=== PATIENT | female | born 1955 | race American Indian/Alaskan Native ===

== ENCOUNTER 2021-10-14 17:10 | Emergency (ER) | payer MEDICARE ==
[2021-10-14 18:54] LABS: Basophils # (Auto) 0.1 K/mm3 (0.0-0.1); Basophils % (Auto) 1.2 % (0.0-1.8); Eosinophils # (Auto) 0.3 K/mm3 (0.0-0.4); Hematocrit 31.4 % (30.3-42.9); Hemoglobin 10.4 gm/dl (10.1-14.3); Lymphocytes # (Auto) 2.6 K/mm3 (1.2-5.4); Lymphocytes % (Auto) 42.7 % (13.4-35.0); Mean Corpuscular HGB Conc 33 % (30-34); Mean Corpuscular Volume 81 fl (79-97); Monocytes # (Auto) 0.6 K/mm3 (0.0-0.8); Platelet Count 293 K/mm3 (140-440); Red Blood Count 3.87 M/mm3 (3.65-5.03); Red Cell Distribution Width 17.4 % (13.2-15.2)
[2021-10-14 19:10] LABS: Calcium 9.5 mg/dL (8.4-10.2)
--- NOTE | 2021-10-14 19:15 | Emergency Department Report ---
ED Psych HPI - General Chief Complaint: Psych Stated Complaint: SI Time Seen by Provider: 10/14/21 17:50 Source: patient, EMS Mode of arrival: Stretcher Limitations: No Limitations - History of Present Illness Initial Comments: Patient is a 66-year-old female with history of depression presenting with complaint of increasing depression with thoughts of suicide. States she contemplated taking a handful of pills earlier today. She denies any specific triggering event. - Related Data Allergies Allergy/AdvReac Type Severity Reaction Status Date / Time codeine Allergy Hives Verified 10/14/21 18:12 Sulfa (Sulfonamide Allergy Anaphylaxis Verified 10/14/21 18:12 Antibiotics) ED Review of Systems ROS: Stated complaint: SI Other details as noted in HPI Constitutional: denies: chills, fever Respiratory: denies: cough, shortness of breath, wheezing Cardiovascular: as per HPI Gastrointestinal: denies: abdominal pain, nausea, diarrhea Genitourinary: denies: urgency, dysuria, discharge Musculoskeletal: denies: back pain, joint swelling, arthralgia Skin: denies: rash, lesions Neurological: denies: headache, weakness, paresthesias Psychiatric: depression, suicidal thoughts ED Past Medical Hx - Past Medical History Hx Hypertension: Yes Hx Diabetes: Yes (controlled with diet) Hx Arthritis: Yes Hx Psychiatric Treatment: Yes (depression, anxiety) Additional medical history: fibromyalgia, chronic pain, insomnia - Surgical History Past Surgical History?: Yes Hx Appendectomy: Yes Additional Surgical History: right shoulder, - Social History Smoking Status: Never Smoker Substance Use Type: Alcohol ED Physical Exam - General Limitations: No Limitations General appearance: alert, in no apparent distress - Head Head exam: Present: atraumatic, normocephalic - Neck Neck exam: Present: normal inspection - Respiratory Respiratory exam: Present: normal lung sounds bilaterally. Absent: respiratory distress - Cardiovascular Cardiovascular Exam: Present: regular rate, normal rhythm, normal heart sounds. Absent: systolic murmur, diastolic murmur, rubs, gallop - GI/Abdominal GI/Abdominal exam: Present: soft. Absent: distended, tenderness - Rectal Rectal exam: Present: deferred - Neurological Exam Neurological exam: Present: alert, oriented X3 - Psychiatric Psychiatric exam: Present: normal affect, depressed, suicidal ideation - Skin Skin exam: Present: warm, dry, intact, normal color ED Course Vital Signs 0510/14/21 10/14/21 17:31 18:13 19:40 Temperature 98.6 F 98 F Pulse Rate 72 72 Respiratory 18 16 Rate Blood Pressure 98/64 109/65 [Left] O2 Sat by Pulse 99 99 100 Oximetry 10/14/21 20:35 Temperature 98.5 F Pulse Rate 78 Respiratory 18 Rate Blood Pressure 116/78 [Left] O2 Sat by Pulse 100 Oximetry ED Medical Decision Making - Lab Data Result diagrams: 10/14/21 18:33 10/14/21 18:33 - Medical Decision Making Patient medically cleared. 1013 on file. Awaiting mental health assessment and placement. Critical care attestation.: If time is entered above; I have spent that time in minutes in the direct care of this critically ill patient, excluding procedure time. ED Disposition Clinical Impression: Depression with suicidal ideation Disposition: [address] [place] [address] Is pt being admited?: Yes Condition: Stable
[2021-10-14] MEDS ORDERED: ACETAMINOPHEN 325 MG TAB PO ONE (21:48)
[2021-10-14 23:32] LABS: Bilirubin,Urine NEG (Negative); Blood,Urine NEG (Negative); Color,Urine Yellow (Yellow); Mucus,Urine FEW /HPF; Protein,Urine <15 mg/dL mg/dL (Negative); Urobilinogen,Urine < 2.0 mg/dL (<2.0)
[2021-10-14 23:43] LABS: Amphetamine Screen,Urine PRESUMPTIVE NEGATIVE; Benzodiazepines Screen,Urine PRESUMPTIVE NEGATIVE; Cannabinoid Screen,Urine PRESUMPTIVE NEGATIVE; Cocaine Screen,Urine PRESUMPTIVE NEGATIVE; Methadone Screen,Urine PRESUMPTIVE NEGATIVE; Opiate Screen,Urine PRESUMPTIVE NEGATIVE
--- NOTE | 2021-10-15 11:13 | Consultation ---
History of Present Illness - Reason for Consult Consult date: 10/15/21 Reason for consult: SI, depression - History of Present Psychiatric Illness HPI: Patient is a 66-year-old female with history of depression presenting with complaint of increasing depression with thoughts of suicide. States she contemplated taking a handful of pills earlier today. She denies any specific triggering event. The patient was seen today. She says she is depressed and has been suffering from it for awhile. She says it seems to be getting worse and she doesn't know why. The patient also endorses suicidal thoughts with a plan to overdose. She denies HI. She denies any hallucinations. She says she has a history of depression and anxiety. The patient states she takes effexor and seroquel for sleep. She says she's been on effexor for so long and not sure if it's really working. She says she hasn't had any of his meds since Thursday. She denies any illicit drug use, chronic alcohol use or nicotine use. PAST PSYCHIATRIC HISTORY: Diagnoses: Depression, anxiety Suicide attempts or Self-harm behavior: Denies Prior psychiatric hospitalizations: Yes Substance Abuse history: Denies Previous psychiatric medications tried: Seroquel, effexor Outpatient treatment: Yes PAST MEDICAL HISTORY: None reported or document Family Psychiatric History: None reported or documented SOCIAL HISTORY Marital Status: Living Arrangements: With Sister Employment Status: Disabled Access to guns/weapons: Denies Education: high school grad History of Abuse: Denies Legal History: Denies REVIEW OF SYSTEMS Constitutional: Negative for weight loss ENT: Negative for stridor Respiratory: Negative for cough or hemoptysis All other systems reviewed and are negative MENTAL STATUS EXAMINATION General Appearance and Behavior: Age appropriate, wearing appropriate clothes, cooperative, polite with questioning, good eye contact Cooperation: cooperative Psychomotor Behavior: Psychomotor normal Mood: depressed Affect and affective range: Congruent with stated mood Thought Process: goal directed Thought Content: SI Speech: Normal volume, Regular rate and rhythm Suicidal Ideation: yes, with plan to OD Homicidal Ideation: Denies Hallucination: Denies Delusions: None elicited Impulse Control: Limited Insight and Judgment: Limited Memory: limited Attention:attentive Orientation: Alert and oriented Diagnoses: Major Depressive Disorder Treatment Plan 1013 Start Seroquel 50mg po BID Start Effexor 25mg po daily Start Vistaril 50mg po BID PSYCHOTHERAPY: Supportive psychotherapy provided MEDICAL: Per primary team DELIRIUM PRECAUTIONS: Please re-orient patient frequently, keep lights on during the day, and minimize benzodiazepines and opiates as these medications could worsen patient's confusion. REAL ESTATE PROFESSIONAL: Per medical team DISPOSITION: Recommend acute psychiatric inpatient treatment Will follow. Thank you for the consult. Case staffed with Dr. Joseph Medications and Allergies Allergies Allergy/AdvReac Type Severity Reaction Status Date / Time codeine Allergy Hives Verified 10/14/21 18:12 Sulfa (Sulfonamide Allergy Anaphylaxis Verified 10/14/21 18:12 Antibiotics) Mental Status Exam - Vital signs Last Vital Signs Temp 98.5 F 10/14/21 20:35 Pulse 78 10/14/21 20:35 Resp 18 10/14/21 20:35 BP 116/78 10/14/21 20:35 Pulse Ox 100 10/14/21 20:35 Results Result Diagrams: 10/14/21 18:33 10/14/21 18:33 Abnormal lab results 10/14/21 10/14/21 10/14/21 Range/Units 18:33 18:33 18:33 MCH 27 L (28-32) pg RDW 17.4 H (13.2-15.2) % Lymph % (Auto) 42.7 H (13.4-35.0) % [place] % (Auto) 10.0 H (0.0-7.3) % Eos % (Auto) 5.0 H (0.0-4.3) % Carbon Dioxide (22-30) mmol/L Creatinine (0.6-1.2) mg/dL Salicylates < 0.3 L (2.8-20.0) mg/dL Acetaminophen 5.0 L (10.0-30.0) ug/mL 10/14/21 Range/Units 18:33 MCH (28-32) pg RDW (13.2-15.2) % Lymph % (Auto) (13.4-35.0) % [place] % (Auto) (0.0-7.3) % Eos % (Auto) (0.0-4.3) % Carbon Dioxide 20 L (22-30) mmol/L Creatinine 1.6 H (0.6-1.2) mg/dL Salicylates (2.8-20.0) mg/dL Acetaminophen (10.0-30.0) ug/mL All other labs normal.
[2021-10-15] MEDS ORDERED: QUEtiapine 25 MG TAB PO SCH (12:00)
[2021-10-15] MEDS ORDERED: VENLAFAXINE 25 MG TAB PO SCH (12:00)
[2021-10-15 16:24] VITALS: BP 113/73
== END 2021-10-15 17:02 ==
LOC: ED 17:10
DX: F32.A Depression, unspecified (principal); R45.851 Suicidal ideations; I10 Essential (primary) hypertension; E11.9 Type 2 diabetes mellitus without complications; M19.90 Unspecified osteoarthritis, unspecified site; Z98.890 Other specified postprocedural states; Z88.1 Allergy status to other antibiotic agents; Z91.09 Other allergy status, other than to drugs and biological substances
CPT/HCPCS: 36415; 80053; 80307; 80320; 81001; 85025; 99284; G0480; Q0177; U0003

== ENCOUNTER 2021-10-15 12:33 | Inpatient (IN) | payer MEDICARE ==
--- NOTE | 2021-10-15 19:11 | Consultation ---
History of Present Illness - Reason for Consult Consult date: 10/15/21 Medical Management Requesting physician: NISHA BHAKTA - History of Present Illness 66 YO Female with Vascular Dementia with Behavioral Disturbance, Cerebral Atherosclerosis, HTN, Diet Controlled DM, FM, CPS, OA, MDD, JACQUELYN, Obesity. Pt is admitted to [place] psych unit for psychiatric stabilization. Consult placed by Dr. Bhakta for medical management. Patient seen and evaluated in the recreation room. Patient denies fever, chills, chest pain, palpitation, productive cough, skin rash, recent contact, known exposure to COVID-19. Patient resting. Patient exhibits tangential thinking with diminished cognition. No reported nursing events. Past History Past Medical History: arthritis, diabetes, hypertension Past Surgical History: appendectomy, Other (Shoulder surgery) Social history: single. denies: smoking Family history: diabetes, hypertension Medications and Allergies Allergies Allergy/AdvReac Type Severity Reaction Status Date / Time codeine Allergy Hives Verified 10/14/21 18:12 Sulfa (Sulfonamide Allergy Anaphylaxis Verified 10/14/21 18:12 Antibiotics) Home Medications Medication Instructions Recorded Confirmed Last Taken Type Albuterol Sulfate 2.25 mg IH [facility] 10/16/21 10/16/21 Unknown History Albuterol Sulfate [Proair 90 mcg IH [facility] 10/16/21 10/16/21 Unknown History Digihaler] Fluticasone Propion/Salmeterol 1 puff INHALATION BID 10/16/21 10/16/21 Unknown History [Wixela 250-50 Inhub] Pregabalin [Lyrica] 100 mg PO [facility] 10/16/21 10/16/21 Unknown History QUEtiapine [SEROquel] 200 mg PO BID 10/16/21 10/16/21 Unknown History Topiramate [Topamax] 50 mg PO K 10/16/21 10/16/21 Unknown History Venlafaxine HCl [Venlafaxine HCl 150 mg PO DAILY 10/16/21 10/16/21 Unknown History ER] amLODIPine [Norvasc] 5 mg PO DAILY 10/16/21 10/16/21 Unknown History buPROPion [Wellbutrin] 1 tab PO BID 10/16/21 10/16/21 Unknown History buPROPion [Wellbutrin] 1 tab PO BID 10/16/21 10/16/21 Unknown History hydrOXYzine HCL 1 tab PO BID 10/16/21 10/16/21 10/15/21 History Review of Systems Constitutional: no weight loss, no weight gain, no fever, no chills Ears, nose, mouth and throat: no ear pain, no tinnitis Breasts: no change in shape, no mass Cardiovascular: no chest pain, no orthopnea, no rapid/irregular heart beat, no edema, no lightheadedness Respiratory: no cough, no cough with sputum, no excessive sputum, no shortness of breath Gastrointestinal: no abdominal pain, no nausea, no vomiting, no diarrhea, no constipation, no hematemesis Genitourinary Female: no pelvic pain, no flank pain, no dysuria, no urinary frequency, no urgency Rectal: no pain, no incontinence, no bleeding Musculoskeletal: no neck stiffness, no neck pain, no low back pain, no shooting leg pain Integumentary: no rash, no pruritis, no redness, no sores, no wounds, no jaundice Neurological: no head injury, no paralysis, no parathesias, no tingling, no seizures, no syncope Psychiatric: no anxiety, no memory loss, no sleep disturbances, no insomnia, no change in appetite, no disorientation Endocrine: no cold intolerance, no excessive thirst, no polydipsia, no nocturia, no excessive sweating Hematologic/Lymphatic: no easy bruising, no easy bleeding, no lymphedema Allergic/Immunologic: no urticaria, no allergic rhinitis, no angioedema Exam - Constitutional General appearance: Present: no acute distress, obese - EENT Eyes: Present: PERRL ENT: hearing intact, clear oral mucosa - Neck Neck: Present: supple, normal ROM - Respiratory Respiratory effort: normal Respiratory: bilateral: diminished - Cardiovascular Heart Sounds: Present: S1 & S2. Absent: rub, click - Extremities Extremities: pulses symmetrical, No edema Peripheral Pulses: within normal limits - Abdominal General gastrointestinal: Present: soft, non-tender, non-distended, normal bowel sounds Female genitourinary: Present: normal - Integumentary Integumentary: Present: clear, warm, dry - Musculoskeletal Musculoskeletal: gait normal, strength equal bilaterally - Psychiatric Psychiatric: cooperative - Neurologic Neurologic: CNII-XII intact, moves all extremities Results - Labs CBC & Chem 7: 10/16/21 09:07 10/16/21 09:07 Assessment and Plan - Patient Problems (1) Vascular dementia with behavior disturbance Current Visit: Yes Status: Acute Plan to address problem: Verbal prompting, verbal redirection, benzodiazepine therapy as clinically indicated, (2) Cerebral atherosclerosis Current Visit: Yes Status: Acute Plan to address problem: Risk factor reduction, antiplatelet therapy as clinically indicated, supportive care. (3) HTN (hypertension) Current Visit: Yes Status: Acute Qualifiers: Hypertension type: primary hypertension Qualified Code(s): I10 - Essential (primary) hypertension Plan to address problem: Monitor blood pressure every shift, continue medical management. (4) Diabetes Current Visit: Yes Status: Acute Plan to address problem: Consistent carbohydrate diet, Accu-Chek, insulin protocol, hypoglycemia protocol. (5) MDD (major depressive disorder) Current Visit: Yes Status: Acute Qualifiers: Major depression episode severity: unspecified Plan to address problem: Supportive care, continue medical management. (6) JACQUELYN (generalized anxiety disorder) Current Visit: Yes Status: Acute Plan to address problem: Benzodiazepine therapy as clinically indicated. Verbal redirection, supportive care. (7) Fibromyalgia Current Visit: Yes Status: Acute Plan to address problem: Continue current therapy, outpatient rheumatology follow-up. (8) Osteoarthritis Current Visit: Yes Status: Acute Plan to address problem: NSAID therapy, supportive care. Pain control. (9) Obesity (BMI 30.0-34.9) Current Visit: Yes Status: Acute Plan to address problem: Balanced diet, increase physical activity discharge, outpatient pulmonary follow-up for sleep study. (10) Advance care planning Current Visit: Yes Status: Acute Plan to address problem: Disease education conducted, care plan discussed, diagnoses discussed, prognosis discussed, patient is full code. Patient knowledges understanding and agreement with care plan, +30 minutes. (11) Preventative health care Current Visit: Yes Status: Acute Plan to address problem: Patient counseled regarding balanced diet, risk factor reduction, medication compliance, increase physical activity at discharge, weight reduction, patient instructed to follow-up with primary care physician for all age and risk factor appropriate screening tests.
[2021-10-15] MEDS: traZODone 50 MG TAB PO SCH (23:31)
[2021-10-15] MEDS: ACETAMINOPHEN 325 MG TAB PO PRN (23:31)
[2021-10-16 09:45] LABS: Basophils # (Auto) 0.1 K/mm3 (0.0-0.1); Basophils % (Auto) 1.3 % (0.0-1.8); Eosinophils # (Auto) 0.3 K/mm3 (0.0-0.4); Eosinophils % (Auto) 5.3 % (0.0-4.3); Hematocrit 32.5 % (30.3-42.9); Hemoglobin 10.9 gm/dl (10.1-14.3); Lymphocytes # (Auto) 2.6 K/mm3 (1.2-5.4); Lymphocytes % (Auto) 45.2 % (13.4-35.0); Mean Corpuscular HGB Conc 34 % (30-34); Mean Corpuscular Volume 81 fl (79-97); Monocytes # (Auto) 0.5 K/mm3 (0.0-0.8); Monocytes % (Auto) 9.3 % (0.0-7.3); Platelet Count 297 K/mm3 (140-440); Red Blood Count 4.02 M/mm3 (3.65-5.03); Red Cell Distribution Width 17.5 % (13.2-15.2)
[2021-10-16 10:09] LABS: Albumin 4.1 g/dL (3.9-5); Calcium 9.4 mg/dL (8.4-10.2); Chol/HDL Ratio 2.85 %
[2021-10-16] MEDS ORDERED: NON-FORMULARY EACH (Pregabalin [Lyrica] 100 MG Capsule) PO SCH (10:45)
[2021-10-16] MEDS ORDERED: ALBUTEROL SULFATE 1.25 MG/3 ML IH SCH (10:45)
[2021-10-16] MEDS ORDERED: NON-FORMULARY EACH (Topiramate [Topamax] 50 MG Tablet) PO SCH (10:45)
[2021-10-16] MEDS ORDERED: NON-FORMULARY EACH (Albuterol Sulfate [Proair Digihaler] 90 MCG Aer.Pw.Bas) IH SCH (10:45)
--- NOTE | 2021-10-16 10:45 | History and Physical Report ---
GP History & Physical - History of Present Illness Date of admission: 10/15/21 Date of Examination: 10/16/21 Reason for Admission: Danger to self, Failure of Outpatient Treatment, Severe anxiety/depression History of Present Illness: HPI: Patient is a 66-year-old female with history of depression presenting with complaint of increasing depression with thoughts of suicide. States she contemplated taking a handful of pills earlier today. She denies any specific triggering event. The patient was seen today. She was first evaluated by me in the ER. The patient expresses being severely depressed. She says she's been depressed for years but it has gotten progressively worse over the last few days. The patient could not identify any triggering events. She also endorses SI with a plan to overdose. She denies hallucinations of any kind. PAST PSYCHIATRIC HISTORY: Diagnoses: Depression, anxiety Suicide attempts or Self-harm behavior: Denies Prior psychiatric hospitalizations: Yes Substance Abuse history: Denies Previous psychiatric medications tried: Seroquel, effexor Outpatient treatment: Yes PAST MEDICAL HISTORY: None reported or document Family Psychiatric History: None reported or documented SOCIAL HISTORY Marital Status: Living Arrangements: With Sister Employment Status: Disabled Access to guns/weapons: Denies Education: high school grad History of Abuse: Denies Legal History: Denies REVIEW OF SYSTEMS Constitutional: Negative for weight loss ENT: Negative for stridor Respiratory: Negative for cough or hemoptysis All other systems reviewed and are negative MENTAL STATUS EXAMINATION General Appearance and Behavior: Age appropriate, wearing appropriate clothes, cooperative, polite with questioning, good eye contact Cooperation: cooperative Psychomotor Behavior: Psychomotor normal Mood: depressed Affect and affective range: Congruent with stated mood Thought Process: goal directed Thought Content: SI Speech: Normal volume, Regular rate and rhythm Suicidal Ideation: yes, with plan to OD Homicidal Ideation: Denies Hallucination: Denies Delusions: None elicited Impulse Control: Limited Insight and Judgment: Limited Memory: limited Attention:attentive Orientation: Alert and oriented Diagnoses: Major Depressive Disorder Treatment Plan Patient admitted for inpatient psychiatric evaluation, medication adjustment and close monitoring The patient's behavior, mood, sleep and appetite will be closely monitored. Patient enrolled in individual and group therapeutic sessions and encouraged to attend. Patient provided with a safe and structured environment. Patient's physical health needs will be addressed by the Hospitalist. Hospitalist Consulted Labs including CBC, CMP, Lipid profile and Hemoglobin A1C levels ordered for baseline reference Social Assessment will be completed and the [place] will work with patient and family to ensure a suitable and safe disposition Medication adjustment will be made as clinically indicated Continued meds Usual Wellness [employer]/Preservation: - Start Trazodone 50 mg po QHS & 50 mg po QHS PRN between 10 PM & 2 AM for insomnia - Start Melatonin 5 mg po QHS to promote circadian rhythm The patient agreed on the treatment plan, understood the risk, benefit, alternative treatment, potential consequence of no treatment, and gave informed consent. Estimated days: 7 Post hospital care: primary care provider, psychiatric provider Case staffed with Dr. Joseph Legal Status: Voluntary Patient Problems: Current Active Problems Advance care planning (Acute) Cerebral atherosclerosis (Acute) Diabetes (Acute) Fibromyalgia (Acute) JACQUELYN (generalized anxiety disorder) (Acute) HTN (hypertension) (Acute) MDD (major depressive disorder) (Acute) Osteoarthritis (Acute) Preventative health care (Acute) Vascular dementia with behavior disturbance (Acute) Reaction to Hospitalization: Accepting Medications and Allergies Allergies Allergy/AdvReac Type Severity Reaction Status Date / Time codeine Allergy Hives Verified 10/14/21 18:12 Sulfa (Sulfonamide Allergy Anaphylaxis Verified 10/14/21 18:12 Antibiotics) Home Medications Medication Instructions Recorded Confirmed Last Taken Type Albuterol Sulfate 2.25 mg IH [facility] 10/16/21 10/16/21 Unknown History Albuterol Sulfate [Proair 90 mcg IH [facility] 10/16/21 10/16/21 Unknown History Digihaler] Fluticasone Propion/Salmeterol 1 puff INHALATION BID 10/16/21 10/16/21 Unknown History [Wixela 250-50 Inhub] Pregabalin [Lyrica] 100 mg PO [facility] 10/16/21 10/16/21 Unknown History QUEtiapine [SEROquel] 200 mg PO BID 10/16/21 10/16/21 Unknown History Topiramate [Topamax] 50 mg PO [facility] 10/16/21 10/16/21 Unknown History Venlafaxine HCl [Venlafaxine HCl 150 mg PO DAILY 10/16/21 10/16/21 Unknown History ER] amLODIPine [Norvasc] 5 mg PO DAILY 10/16/21 10/16/21 Unknown History buPROPion [Wellbutrin] 1 tab PO BID 10/16/21 10/16/21 Unknown History buPROPion [Wellbutrin] 1 tab PO BID 10/16/21 10/16/21 Unknown History hydrOXYzine HCL 1 tab PO BID 10/16/21 10/16/21 10/15/21 History Active Meds: Active Medications Acetaminophen (Acetaminophen 325 Mg Tab) 650 mg PO Q6H PRN PRN Reason: Pain, Mild (1-3) Last Admin: 10/15/21 23:31 Dose: 650 mg Trazodone HCl (Trazodone 50 Mg Tab) 50 mg PO QHS JOSE Last Admin: 10/15/21 23:31 Dose: 50 mg Results - Results Labs/Vitals: Laboratory Last Values WBC 5.7 K/mm3 (4.5-11.0) 10/16/21 09:07 RBC 4.02 M/mm3 (3.65-5.03) 10/16/21 09:07 Hgb 10.9 gm/dl (10.1-14.3) 10/16/21 09:07 Hct 32.5 % (30.3-42.9) 10/16/21 09:07 MCV 81 fl (79-97) 10/16/21 09:07 MCH 27 pg (28-32) L 10/16/21 09:07 MCHC 34 % (30-34) 10/16/21 09:07 RDW 17.5 % (13.2-15.2) H 10/16/21 09:07 Plt Count 297 K/mm3 (140-440) 10/16/21 09:07 Lymph % (Auto) 45.2 % (13.4-35.0) H 10/16/21 09:07 [place] % (Auto) 9.3 % (0.0-7.3) H 10/16/21 09:07 Eos % (Auto) 5.3 % (0.0-4.3) H 10/16/21 09:07 Baso % (Auto) 1.3 % (0.0-1.8) 10/16/21 09:07 Lymph # (Auto) 2.6 K/mm3 (1.2-5.4) 10/16/21 09:07 [place] # (Auto) 0.5 K/mm3 (0.0-0.8) 10/16/21 09:07 Eos # (Auto) 0.3 K/mm3 (0.0-0.4) 10/16/21 09:07 Baso # (Auto) 0.1 K/mm3 (0.0-0.1) 10/16/21 09:07 Seg Neutrophils % 38.9 % (40.0-70.0) L 10/16/21 09:07 Seg Neutrophils # 2.2 K/mm3 (1.8-7.7) 10/16/21 09:07 Sodium 141 mmol/L (137-145) 10/16/21 09:07 Potassium 3.9 mmol/L (3.6-5.0) 10/16/21 09:07 Chloride 106.6 mmol/L (98-107) 10/16/21 09:07 Carbon Dioxide 24 mmol/L (22-30) 10/16/21 09:07 Anion Gap 14 mmol/L 10/16/21 09:07 BUN 18 mg/dL (7-17) H 10/16/21 09:07 Creatinine 1.4 mg/dL (0.6-1.2) H 10/16/21 09:07 Estimated GFR 46 ml/min 10/16/21 09:07 BUN/Creatinine Ratio 13 % 10/16/21 09:07 Glucose 80 mg/dL (65-100) 10/16/21 09:07 Hemoglobin A1c 5.6 % (4-6) 10/16/21 09:07 Calcium 9.4 mg/dL (8.4-10.2) 10/16/21 09:07 Total Bilirubin 0.30 mg/dL (0.1-1.2) 10/16/21 09:07 AST 19 units/L (5-40) 10/16/21 09:07 ALT 17 units/L (7-56) 10/16/21 09:07 Alkaline Phosphatase 103 units/L (35-129) 10/16/21 09:07 Total Protein 6.7 g/dL (6.3-8.2) 10/16/21 09:07 Albumin 4.1 g/dL (3.9-5) 10/16/21 09:07 Albumin/Globulin Ratio 1.6 % 10/16/21 09:07 Triglycerides 64 mg/dL (2-149) 10/16/21 09:07 Cholesterol 171 mg/dL (50-199) 10/16/21 09:07 LDL Cholesterol Direct 91 mg/dL (50-130) 10/16/21 09:07 HDL Cholesterol 60 mg/dL (40-59) H 10/16/21 09:07 Cholesterol/HDL Ratio 2.85 % 10/16/21 09:07 TSH 1.530 mlU/mL (0.270-4.200) 10/16/21 09:07 Last Vital Signs Temp 98.1 F 10/15/21 22:00 Pulse 82 10/15/21 22:00 Resp 18 10/15/21 22:00 BP 106/77 10/15/21 22:00 Pulse Ox 100 10/15/21 22:00 Physical Examination - Constitutional Vitals: Vital Signs Temp Pulse Resp BP Pulse Ox 98.1 F 82 18 106/77 100 10/15/21 22:00 10/15/21 22:00 10/15/21 22:00 10/15/21 22:00 10/15/21 22:00 Temperature -Last 24 Hours Temperature 98.1 F Temperature 98.1 F Temperature 98.8 F Mental Status Exam - Vital signs Last Vital Signs Temp 98.1 F 10/15/21 22:00 Pulse 82 10/15/21 22:00 Resp 18 10/15/21 22:00 BP 106/77 10/15/21 22:00 Pulse Ox 100 10/15/21 22:00 Physician Certification - Certification Statement Physician Certification Statement: This is an acknowledgement statement that RUFINO RAMON is a 66 year old F who requires inpatient psychiatric admission for treatment which could reasonably be expected to improve the patient's condition for Estimated period of time patient will need to remain in the hospital: [ ] Plan for post-hospital care: [ ]
[2021-10-16] MEDS ORDERED: VENLAFAXINE HCL 150 MG PO SCH (11:00)
[2021-10-16] MEDS ORDERED: ALBUTEROL 2.5 MG/3 ML NEBU IH PRN (12:03)
[2021-10-16] MEDS: ACETAMINOPHEN 325 MG TAB PO PRN (13:26)
[2021-10-16] MEDS: amLODIPine 5 MG TAB PO SCH (13:28)
[2021-10-16] MEDS: buPROPion 100 MG TAB PO SCH ×2 (13:30→21:15)
[2021-10-16] MEDS: QUEtiapine 200 MG TAB PO SCH ×2 (13:30→21:15)
[2021-10-16] MEDS: VENLAFAXINE XR 75 MG CAP PO SCH (13:37)
[2021-10-16] MEDS: traZODone 50 MG TAB PO SCH (21:15)
[2021-10-16] MEDS ORDERED: HYDROXYZINE HCL 50 MG PO SCH (22:00)
[2021-10-16] MEDS ORDERED: NON-FORMULARY EACH (Fluticasone Propion/Salmeterol [Wixela 250-50 Inhub] 1 EACH Blst.W.Dev INHALATION SCH (22:00)
[2021-10-16] MEDS: BUDESONIDE 0.5 MG/2 ML NEBU IH SCH (22:22)
[2021-10-16] MEDS: ARFORMOTEROL 15 MCG/2 ML NEBU IH SCH (22:22)
[2021-10-16] MEDS: hydrOXYzine HCL 25 MG TAB PO SCH (22:32)
--- NOTE | 2021-10-17 08:47 | Progress Note ---
Subjective Date of service: 10/17/21 Principal diagnosis: Major Depressive Disorder Subjective Comment: The patient was seen today. She verbalizes still feeling depressed. She endorses SI with no plan at this time. She says "only cause I'm here. That's why I don't have a plan." She denies hallucinations. REVIEW OF SYSTEMS Constitutional: Negative for weight loss ENT: Negative for stridor Respiratory: Negative for cough or hemoptysis All other systems reviewed and are negative MENTAL STATUS EXAMINATION General Appearance and Behavior: Age appropriate, wearing appropriate clothes, cooperative, polite with questioning, good eye contact Cooperation: cooperative Psychomotor Behavior: Psychomotor normal Mood: depressed Affect and affective range: Congruent with stated mood Thought Process: goal directed Thought Content: SI Speech: Normal volume, Regular rate and rhythm Suicidal Ideation: yes, with plan to OD Homicidal Ideation: Denies Hallucination: Denies Delusions: None elicited Impulse Control: Limited Insight and Judgment: Limited Memory: limited Attention:attentive Orientation: Alert and oriented Diagnoses: Major Depressive Disorder Treatment Plan Patient admitted for inpatient psychiatric evaluation, medication adjustment and close monitoring The patient's behavior, mood, sleep and appetite will be closely monitored. Patient enrolled in individual and group therapeutic sessions and encouraged to attend. Patient provided with a safe and structured environment. Patient's physical health needs will be addressed by the Hospitalist. Hospitalist Consulted Labs including CBC, CMP, Lipid profile and Hemoglobin A1C levels ordered for baseline reference Social Assessment will be completed and the Technical Solutions Director will work with patient and family to ensure a suitable and safe disposition Medication adjustment will be made as clinically indicated Increased Seroquel yesterday No changes made today Usual Wellness [place]/Preservation: - Start Trazodone 50 mg po QHS & 50 mg po QHS PRN between 10 PM & 2 AM for insomnia - Start Melatonin 5 mg po QHS to promote circadian rhythm The patient agreed on the treatment plan, understood the risk, benefit, alternative treatment, potential consequence of no treatment, and gave informed consent. Estimated days: 7 Post hospital care: primary care provider, psychiatric provider Case staffed with Dr. Joseph Medications and Allergies Allergies Allergy/AdvReac Type Severity Reaction Status Date / Time codeine Allergy Hives Verified 10/14/21 18:12 Sulfa (Sulfonamide Allergy Anaphylaxis Verified 10/14/21 18:12 Antibiotics) Home Medications Medication Instructions Recorded Confirmed Last Taken Type Albuterol Sulfate 2.25 mg IH UNK 10/16/21 10/16/21 Unknown History Albuterol Sulfate [Proair 90 mcg IH UNK 10/16/21 10/16/21 Unknown History Digihaler] Fluticasone Propion/Salmeterol 1 puff INHALATION BID 10/16/21 10/16/21 Unknown History [Wixela 250-50 Inhub] Pregabalin [Lyrica] 100 mg PO UNK 10/16/21 10/16/21 Unknown History QUEtiapine [SEROquel] 200 mg PO BID 10/16/21 10/16/21 Unknown History Topiramate [Topamax] 50 mg PO UNK 10/16/21 10/16/21 Unknown History Venlafaxine HCl [Venlafaxine HCl 150 mg PO DAILY 10/16/21 10/16/21 Unknown History ER] amLODIPine [Norvasc] 5 mg PO DAILY 10/16/21 10/16/21 Unknown History buPROPion [Wellbutrin] 1 tab PO BID 10/16/21 10/16/21 Unknown History buPROPion [Wellbutrin] 1 tab PO BID 10/16/21 10/16/21 Unknown History hydrOXYzine HCL 1 tab PO BID 10/16/21 10/16/21 10/15/21 History Active Meds: Active Medications Acetaminophen (Acetaminophen 325 Mg Tab) 650 mg PO Q6H PRN PRN Reason: Pain, Mild (1-3) Last Admin: 10/16/21 13:26 Dose: 650 mg Albuterol (Albuterol 2.5 Mg/3 Ml Nebu) 2.5 mg IH Q4HRT PRN PRN Reason: Shortness Of Breath Amlodipine Besylate (Amlodipine 5 Mg Tab) 5 mg PO DAILY [facility] Last Admin: 10/16/21 13:28 Dose: 5 mg Arformoterol Tartrate (Arformoterol 15 Mcg/2 Ml Nebu) 15 mcg IH Q12HRT [facility] Last Admin: 10/16/21 22:22 Dose: Not Given Budesonide (Budesonide 0.5 Mg/2 Ml Nebu) 0.5 mg IH Q12HRT [facility] Last Admin: 10/16/21 22:22 Dose: Not Given Bupropion HCl (Bupropion 100 Mg Tab) 100 mg PO BID [facility] Last Admin: 10/16/21 21:15 Dose: 100 mg Hydroxyzine HCl (Hydroxyzine Hcl 25 Mg Tab) 50 mg PO BID [facility] Last Admin: 10/16/21 22:32 Dose: 50 mg Miscellaneous Medication (Pregabalin [Lyrica]) 100 mg PO UNK [facility] Miscellaneous Medication (Topiramate [Topamax]) 50 mg PO UNK [facility] Quetiapine Fumarate (Quetiapine 200 Mg Tab) 200 mg PO BID [facility] Last Admin: 10/16/21 21:15 Dose: 200 mg Trazodone HCl (Trazodone 50 Mg Tab) 50 mg PO QHS [facility] Last Admin: 10/16/21 21:15 Dose: 50 mg Venlafaxine HCl (Venlafaxine Xr 75 Mg Cap) 150 mg PO QDAY [facility] Last Admin: 10/16/21 13:37 Dose: 150 mg Results - Results Labs/Vitals: Laboratory Last Values WBC 5.7 K/mm3 (4.5-11.0) 10/16/21 09:07 RBC 4.02 M/mm3 (3.65-5.03) 10/16/21 09:07 Hgb 10.9 gm/dl (10.1-14.3) 10/16/21 09:07 Hct 32.5 % (30.3-42.9) 10/16/21 09:07 MCV 81 fl (79-97) 10/16/21 09:07 MCH 27 pg (28-32) L 10/16/21 09:07 MCHC 34 % (30-34) 10/16/21 09:07 RDW 17.5 % (13.2-15.2) H 10/16/21 09:07 Plt Count 297 K/mm3 (140-440) 10/16/21 09:07 Lymph % (Auto) 45.2 % (13.4-35.0) H 10/16/21 09:07 [place] % (Auto) 9.3 % (0.0-7.3) H 10/16/21 09:07 Eos % (Auto) 5.3 % (0.0-4.3) H 10/16/21 09:07 Baso % (Auto) 1.3 % (0.0-1.8) 10/16/21 09:07 Lymph # (Auto) 2.6 K/mm3 (1.2-5.4) 10/16/21 09:07 [place] # (Auto) 0.5 K/mm3 (0.0-0.8) 10/16/21 09:07 Eos # (Auto) 0.3 K/mm3 (0.0-0.4) 10/16/21 09:07 Baso # (Auto) 0.1 K/mm3 (0.0-0.1) 10/16/21 09:07 Seg Neutrophils % 38.9 % (40.0-70.0) L 10/16/21 09:07 Seg Neutrophils # 2.2 K/mm3 (1.8-7.7) 10/16/21 09:07 Sodium 141 mmol/L (137-145) 10/16/21 09:07 Potassium 3.9 mmol/L (3.6-5.0) 10/16/21 09:07 Chloride 106.6 mmol/L (98-107) 10/16/21 09:07 Carbon Dioxide 24 mmol/L (22-30) 10/16/21 09:07 Anion Gap 14 mmol/L 10/16/21 09:07 BUN 18 mg/dL (7-17) H 10/16/21 09:07 Creatinine 1.4 mg/dL (0.6-1.2) H 10/16/21 09:07 Estimated GFR 46 ml/min 10/16/21 09:07 BUN/Creatinine Ratio 13 % 10/16/21 09:07 Glucose 80 mg/dL (65-100) 10/16/21 09:07 POC Glucose 102 mg/dL (70-105) 10/16/21 17:05 Hemoglobin A1c 5.6 % (4-6) 10/16/21 09:07 Calcium 9.4 mg/dL (8.4-10.2) 10/16/21 09:07 Total Bilirubin 0.30 mg/dL (0.1-1.2) 10/16/21 09:07 AST 19 units/L (5-40) 10/16/21 09:07 ALT 17 units/L (7-56) 10/16/21 09:07 Alkaline Phosphatase 103 units/L (35-129) 10/16/21 09:07 Total Protein 6.7 g/dL (6.3-8.2) 10/16/21 09:07 Albumin 4.1 g/dL (3.9-5) 10/16/21 09:07 Albumin/Globulin Ratio 1.6 % 10/16/21 09:07 Triglycerides 64 mg/dL (2-149) 10/16/21 09:07 Cholesterol 171 mg/dL (50-199) 10/16/21 09:07 LDL Cholesterol Direct 91 mg/dL (50-130) 10/16/21 09:07 HDL Cholesterol 60 mg/dL (40-59) H 10/16/21 09:07 Cholesterol/HDL Ratio 2.85 % 10/16/21 09:07 TSH 1.530 mlU/mL (0.270-4.200) 10/16/21 09:07 Last Vital Signs Temp 97.5 F L 10/16/21 22:00 Pulse 97 H 10/16/21 22:00 Resp 18 10/16/21 22:00 BP 129/81 10/16/21 22:00 Pulse Ox 99 10/16/21 22:00
[2021-10-17] MEDS: BUDESONIDE 0.5 MG/2 ML NEBU IH SCH ×2 (09:24→20:22)
[2021-10-17] MEDS: ARFORMOTEROL 15 MCG/2 ML NEBU IH SCH ×2 (09:25→20:21)
[2021-10-17] MEDS: QUEtiapine 200 MG TAB PO SCH ×2 (09:34→21:18)
[2021-10-17] MEDS: amLODIPine 5 MG TAB PO SCH (09:34)
[2021-10-17] MEDS: buPROPion 100 MG TAB PO SCH ×2 (09:34→21:17)
[2021-10-17] MEDS: VENLAFAXINE XR 75 MG CAP PO SCH (09:34)
[2021-10-17] MEDS: hydrOXYzine HCL 25 MG TAB PO SCH ×2 (09:36→21:17)
[2021-10-17] MEDS ORDERED: LIP THERAPY VASELINE TP PRN (15:36)
--- NOTE | 2021-10-17 19:09 | Progress Note ---
Assessment and Plan - Patient Problems (1) Vascular dementia with behavior disturbance Current Visit: Yes Status: Acute Plan to address problem: Verbal prompting, verbal redirection, benzodiazepine therapy as clinically indicated, (2) Cerebral atherosclerosis Current Visit: Yes Status: Acute Plan to address problem: Risk factor reduction, antiplatelet therapy as clinically indicated, supportive care. (3) HTN (hypertension) Current Visit: Yes Status: Acute Qualifiers: Hypertension type: primary hypertension Qualified Code(s): I10 - Essential (primary) hypertension Plan to address problem: Monitor blood pressure every shift, continue medical management. (4) Diabetes Current Visit: Yes Status: Acute Plan to address problem: Consistent carbohydrate diet, Accu-Chek, insulin protocol, hypoglycemia pr otocol. (5) MDD (major depressive disorder) Current Visit: Yes Status: Acute Qualifiers: Major depression episode severity: unspecified Plan to address problem: Supportive care, continue medical management. (6) JACQUELYN (generalized anxiety disorder) Current Visit: Yes Status: Acute Plan to address problem: Benzodiazepine therapy as clinically indicated. Verbal redirection, supportive care. (7) Fibromyalgia Current Visit: Yes Status: Acute Plan to address problem: Continue current therapy, outpatient rheumatology follow-up. (8) Osteoarthritis Current Visit: Yes Status: Acute Plan to address problem: NSAID therapy, supportive care. Pain control. (9) Obesity (BMI 30.0-34.9) Current Visit: Yes Status: Acute Plan to address problem: Balanced diet, increase physical activity discharge, outpatient pulmonary follow-up for sleep study. (10) Advance care planning Current Visit: Yes Status: Acute Plan to address problem: Disease education conducted, care plan discussed, diagnoses discussed, prognosis discussed, patient is full code. Patient knowledges understanding and agreement with care plan, +30 minutes. (11) Preventative health care Current Visit: Yes Status: Acute Plan to address problem: Patient counseled regarding balanced diet, risk factor reduction, medication compliance, increase physical activity at discharge, weight reduction, patient instructed to follow-up with primary care physician for all age and risk factor appropriate screening tests. History Interval history: 66 YO Female with Vascular Dementia with Behavioral Disturbance, Cerebral Atherosclerosis, HTN, Diet Controlled DM, FM, CPS, OA, MDD, JACQUELYN, Obesity. Pt is admitted to [place] psych unit for psychiatric stabilization. Consult placed by Dr. Kolb for medical management. Patient seen and evaluated in the recreation room. Patient remains at baseline level of cognition and function. No reported nursing events. Hospitalist Physical - Constitutional Vitals: Temp Pulse Resp BP Pulse Ox 97.5 F L 94 H 16 132/86 99 10/16/21 22:00 10/17/21 09:34 10/17/21 08:54 10/17/21 09:34 10/17/21 08:54 General appearance: Present: no acute distress, obese - EENT Eyes: Present: PERRL ENT: hearing intact - Neck Neck: Present: supple - Respiratory Respiratory effort: normal Respiratory: bilateral: CTA - Cardiovascular Rhythm: regular Heart Sounds: Present: S1 & S2 - Extremities Extremities: no ischemia Peripheral Pulses: within normal limits - Abdominal General gastrointestinal: soft, non-tender, non-distended - Integumentary Integumentary: Present: clear, dry - Psychiatric Psychiatric: cooperative - Neurologic Neurologic: CNII-XII intact Results - Labs CBC & Chem 7: 10/16/21 09:07 10/16/21 09:07 Labs: Laboratory Last Values WBC 5.7 K/mm3 (4.5-11.0) 10/16/21 09:07 RBC 4.02 M/mm3 (3.65-5.03) 10/16/21 09:07 Hgb 10.9 gm/dl (10.1-14.3) 10/16/21 09:07 Hct 32.5 % (30.3-42.9) 10/16/21 09:07 MCV 81 fl (79-97) 10/16/21 09:07 MCH 27 pg (28-32) L 10/16/21 09:07 MCHC 34 % (30-34) 10/16/21 09:07 RDW 17.5 % (13.2-15.2) H 10/16/21 09:07 Plt Count 297 K/mm3 (140-440) 10/16/21 09:07 Lymph % (Auto) 45.2 % (13.4-35.0) H 10/16/21 09:07 [place] % (Auto) 9.3 % (0.0-7.3) H 10/16/21 09:07 Eos % (Auto) 5.3 % (0.0-4.3) H 10/16/21 09:07 Baso % (Auto) 1.3 % (0.0-1.8) 10/16/21 09:07 Lymph # (Auto) 2.6 K/mm3 (1.2-5.4) 10/16/21 09:07 [place] # (Auto) 0.5 K/mm3 (0.0-0.8) 10/16/21 09:07 Eos # (Auto) 0.3 K/mm3 (0.0-0.4) 10/16/21 09:07 Baso # (Auto) 0.1 K/mm3 (0.0-0.1) 10/16/21 09:07 Seg Neutrophils % 38.9 % (40.0-70.0) L 10/16/21 09:07 Seg Neutrophils # 2.2 K/mm3 (1.8-7.7) 10/16/21 09:07 Sodium 141 mmol/L (137-145) 10/16/21 09:07 Potassium 3.9 mmol/L (3.6-5.0) 10/16/21 09:07 Chloride 106.6 mmol/L (98-107) 10/16/21 09:07 Carbon Dioxide 24 mmol/L (22-30) 10/16/21 09:07 Anion Gap 14 mmol/L 10/16/21 09:07 BUN 18 mg/dL (7-17) H 10/16/21 09:07 Creatinine 1.4 mg/dL (0.6-1.2) H 10/16/21 09:07 Estimated GFR 46 ml/min 10/16/21 09:07 BUN/Creatinine Ratio 13 % 10/16/21 09:07 Glucose 80 mg/dL (65-100) 10/16/21 09:07 POC Glucose 102 mg/dL (70-105) 10/16/21 17:05 Hemoglobin A1c 5.6 % (4-6) 10/16/21 09:07 Calcium 9.4 mg/dL (8.4-10.2) 10/16/21 09:07 Total Bilirubin 0.30 mg/dL (0.1-1.2) 10/16/21 09:07 AST 19 units/L (5-40) 10/16/21 09:07 ALT 17 units/L (7-56) 10/16/21 09:07 Alkaline Phosphatase 103 units/L (35-129) 10/16/21 09:07 Total Protein 6.7 g/dL (6.3-8.2) 10/16/21 09:07 Albumin 4.1 g/dL (3.9-5) 10/16/21 09:07 Albumin/Globulin Ratio 1.6 % 10/16/21 09:07 Triglycerides 64 mg/dL (2-149) 10/16/21 09:07 Cholesterol 171 mg/dL (50-199) 10/16/21 09:07 LDL Cholesterol Direct 91 mg/dL (50-130) 10/16/21 09:07 HDL Cholesterol 60 mg/dL (40-59) H 10/16/21 09:07 Cholesterol/HDL Ratio 2.85 % 10/16/21 09:07 TSH 1.530 mlU/mL (0.270-4.200) 10/16/21 09:07 [place]/IV: Voiding Method Toilet Active Medications - Current Medications Current Medications: Generic Name Dose Route Start Last Admin Trade Name Freq PRN Reason Stop Dose Admin Acetaminophen 650 mg 10/15/21 23:20 10/16/21 13:26 Acetaminophen 325 Mg Tab PO 650 mg Q6H PRN Administration Pain, Mild (1-3) Albuterol 2.5 mg 10/16/21 12:03 Albuterol 2.5 Mg/3 Ml Nebu IH Q4HRT PRN Shortness Of Breath Amlodipine Besylate 5 mg 10/16/21 11:00 10/17/21 09:34 Amlodipine 5 Mg Tab PO 5 mg DAILY JOSE Administration Arformoterol Tartrate 15 mcg 10/16/21 20:00 10/17/21 09:25 Arformoterol 15 Mcg/2 Ml Nebu IH 15 mcg Q12HRT JOSE Administration Budesonide 0.5 mg 10/16/21 20:00 10/17/21 09:24 Budesonide 0.5 Mg/2 Ml Nebu IH 0.5 mg Q12HRT JOSE Administration Bupropion HCl 100 mg 10/16/21 11:00 10/17/21 09:34 Bupropion 100 Mg Tab PO 100 mg BID JOSE Administration Hydrophilic Ointment 1 applic 10/17/21 15:36 Lip Therapy Vaseline TP DIRECT PRN Dry Lips Hydroxyzine HCl 50 mg 10/16/21 22:00 10/17/21 09:36 Hydroxyzine Hcl 25 Mg Tab PO 50 mg BID JOSE Administration Miscellaneous Medication 100 mg 10/16/21 10:45 Pregabalin [Lyrica] PO UNK JOSE Miscellaneous Medication 50 mg 10/16/21 10:45 Topiramate [Topamax] PO UNK JOSE Quetiapine Fumarate 200 mg 10/16/21 11:00 10/17/21 09:34 Quetiapine 200 Mg Tab PO 200 mg BID JOSE Administration Trazodone HCl 50 mg 10/15/21 23:00 10/16/21 21:15 Trazodone 50 Mg Tab PO 50 mg QHS JOSE Administration Venlafaxine HCl 150 mg 10/16/21 12:00 10/17/21 09:34 Venlafaxine Xr 75 Mg Cap PO 150 mg QDAY JOSE Administration
[2021-10-17] MEDS: traZODone 50 MG TAB PO SCH (21:18)
--- NOTE | 2021-10-18 08:39 | Progress Note ---
Subjective Date of service: 10/18/21 Principal diagnosis: Major Depressive Disorder Subjective Comment: 10/18:The patient was seen today. She reports sleep as poor. the patient continues to endorse depression rating as 8/10. She denies any current suicidal/homicidal ideation and denies hallucinations. Started Wellbutrin XL 150mg po daily. 10/17:The patient was seen today. She verbalizes still feeling depressed. She endorses SI with no plan at this time. She says "only cause I'm here. That's why I don't have a plan." She denies hallucinations. REVIEW OF SYSTEMS Constitutional: Negative for weight loss ENT: Negative for stridor Respiratory: Negative for cough or hemoptysis All other systems reviewed and are negative MENTAL STATUS EXAMINATION General Appearance and Behavior: Age appropriate, wearing appropriate clothes, cooperative, polite with questioning, good eye contact Cooperation: cooperative Psychomotor Behavior: Psychomotor normal Mood: depressed Affect and affective range: Congruent with stated mood Thought Process: goal directed Thought Content: Denies Speech: Normal volume, Regular rate and rhythm Suicidal Ideation: Denies Homicidal Ideation: Denies Hallucination: Denies Delusions: None elicited Impulse Control: Limited Insight and Judgment: Limited Memory: limited Attention:attentive Orientation: Alert and oriented Diagnoses: Major Depressive Disorder Treatment Plan Patient admitted for inpatient psychiatric evaluation, medication adjustment and close monitoring The patient's behavior, mood, sleep and appetite will be closely monitored. Patient enrolled in individual and group therapeutic sessions and encouraged to attend. Patient provided with a safe and structured environment. Patient's physical health needs will be addressed by the Hospitalist. Hospitalist Consulted Labs including CBC, CMP, Lipid profile and Hemoglobin A1C levels ordered for baseline reference Social Assessment will be completed and the Artist Model will work with patient and family to ensure a suitable and safe disposition Medication adjustment will be made as clinically indicated Continue Seroquel 200mg po BID Usual Wellness [place]/Preservation: - Start Trazodone 50 mg po QHS & 50 mg po QHS PRN between 10 PM & 2 AM for insomnia - Start Melatonin 5 mg po QHS to promote circadian rhythm The patient agreed on the treatment plan, understood the risk, benefit, alternative treatment, potential consequence of no treatment, and gave informed consent. Estimated days: 4 Post hospital care: primary care provider, psychiatric provider Case staffed with Dr. Joseph Medications and Allergies Medications and Allergies Allergies Allergy/AdvReac Type Severity Reaction Status Date / Time codeine Allergy Hives Verified 10/14/21 18:12 Sulfa (Sulfonamide Allergy Anaphylaxis Verified 10/14/21 18:12 Antibiotics) Home Medications Medication Instructions Recorded Confirmed Last Taken Type Albuterol Sulfate 2.25 mg IH UNK 10/16/21 10/16/21 Unknown History Albuterol Sulfate [Proair 90 mcg IH UNK 10/16/21 10/16/21 Unknown History Digihaler] Fluticasone Propion/Salmeterol 1 puff INHALATION BID 10/16/21 10/16/21 Unknown History [Wixela 250-50 Inhub] Pregabalin [Lyrica] 100 mg PO UNK 10/16/21 10/16/21 Unknown History QUEtiapine [SEROquel] 200 mg PO BID 10/16/21 10/16/21 Unknown History Topiramate [Topamax] 50 mg PO UNK 10/16/21 10/16/21 Unknown History Venlafaxine HCl [Venlafaxine HCl 150 mg PO DAILY 10/16/21 10/16/21 Unknown History ER] amLODIPine [Norvasc] 5 mg PO DAILY 10/16/21 10/16/21 Unknown History buPROPion [Wellbutrin] 1 tab PO BID 10/16/21 10/16/21 Unknown History buPROPion [Wellbutrin] 1 tab PO BID 10/16/21 10/16/21 Unknown History hydrOXYzine HCL 1 tab PO BID 10/16/21 10/16/21 10/15/21 History Active Meds: Active Medications Acetaminophen (Acetaminophen 325 Mg Tab) 650 mg PO Q6H PRN PRN Reason: Pain, Mild (1-3) Last Admin: 10/16/21 13:26 Dose: 650 mg Albuterol (Albuterol 2.5 Mg/3 Ml Nebu) 2.5 mg IH Q4HRT PRN PRN Reason: Shortness Of Breath Amlodipine Besylate (Amlodipine 5 Mg Tab) 5 mg PO DAILY [facility] Last Admin: 10/17/21 09:34 Dose: 5 mg Arformoterol Tartrate (Arformoterol 15 Mcg/2 Ml Nebu) 15 mcg IH Q12HRT [facility] Last Admin: 10/17/21 20:21 Dose: 15 mcg Budesonide (Budesonide 0.5 Mg/2 Ml Nebu) 0.5 mg IH Q12HRT [facility] Last Admin: 10/17/21 20:22 Dose: 0.5 mg Bupropion HCl (Bupropion 100 Mg Tab) 100 mg PO BID [facility] Last Admin: 10/17/21 21:17 Dose: 100 mg Hydrophilic Ointment (Lip Therapy Vaseline) 1 applic TP DIRECT PRN PRN Reason: Dry Lips Hydroxyzine HCl (Hydroxyzine Hcl 25 Mg Tab) 50 mg PO BID [facility] Last Admin: 10/17/21 21:17 Dose: 50 mg Miscellaneous Medication (Pregabalin [Lyrica]) 100 mg PO UNK [facility] Miscellaneous Medication (Topiramate [Topamax]) 50 mg PO UNK [facility] Quetiapine Fumarate (Quetiapine 200 Mg Tab) 200 mg PO BID [facility] Last Admin: 10/17/21 21:18 Dose: 200 mg Trazodone HCl (Trazodone 50 Mg Tab) 50 mg PO QHS [facility] Last Admin: 10/17/21 21:18 Dose: 50 mg Venlafaxine HCl (Venlafaxine Xr 75 Mg Cap) 150 mg PO QDAY [facility] Last Admin: 10/17/21 09:34 Dose: 150 mg Results - Results Labs/Vitals: Laboratory Last Values WBC 5.7 K/mm3 (4.5-11.0) 10/16/21 09:07 RBC 4.02 M/mm3 (3.65-5.03) 10/16/21 09:07 Hgb 10.9 gm/dl (10.1-14.3) 10/16/21 09:07 Hct 32.5 % (30.3-42.9) 10/16/21 09:07 MCV 81 fl (79-97) 10/16/21 09:07 MCH 27 pg (28-32) L 10/16/21 09:07 MCHC 34 % (30-34) 10/16/21 09:07 RDW 17.5 % (13.2-15.2) H 10/16/21 09:07 Plt Count 297 K/mm3 (140-440) 10/16/21 09:07 Lymph % (Auto) 45.2 % (13.4-35.0) H 10/16/21 09:07 [place] % (Auto) 9.3 % (0.0-7.3) H 10/16/21 09:07 Eos % (Auto) 5.3 % (0.0-4.3) H 10/16/21 09:07 Baso % (Auto) 1.3 % (0.0-1.8) 10/16/21 09:07 Lymph # (Auto) 2.6 K/mm3 (1.2-5.4) 10/16/21 09:07 [place] # (Auto) 0.5 K/mm3 (0.0-0.8) 10/16/21 09:07 Eos # (Auto) 0.3 K/mm3 (0.0-0.4) 10/16/21 09:07 Baso # (Auto) 0.1 K/mm3 (0.0-0.1) 10/16/21 09:07 Seg Neutrophils % 38.9 % (40.0-70.0) L 10/16/21 09:07 Seg Neutrophils # 2.2 K/mm3 (1.8-7.7) 10/16/21 09:07 Sodium 141 mmol/L (137-145) 10/16/21 09:07 Potassium 3.9 mmol/L (3.6-5.0) 10/16/21 09:07 Chloride 106.6 mmol/L (98-107) 10/16/21 09:07 Carbon Dioxide 24 mmol/L (22-30) 10/16/21 09:07 Anion Gap 14 mmol/L 10/16/21 09:07 BUN 18 mg/dL (7-17) H 10/16/21 09:07 Creatinine 1.4 mg/dL (0.6-1.2) H 10/16/21 09:07 Estimated GFR 46 ml/min 10/16/21 09:07 BUN/Creatinine Ratio 13 % 10/16/21 09:07 Glucose 80 mg/dL (65-100) 10/16/21 09:07 POC Glucose 102 mg/dL (70-105) 10/16/21 17:05 Hemoglobin A1c 5.6 % (4-6) 10/16/21 09:07 Calcium 9.4 mg/dL (8.4-10.2) 10/16/21 09:07 Total Bilirubin 0.30 mg/dL (0.1-1.2) 10/16/21 09:07 AST 19 units/L (5-40) 10/16/21 09:07 ALT 17 units/L (7-56) 10/16/21 09:07 Alkaline Phosphatase 103 units/L (35-129) 10/16/21 09:07 Total Protein 6.7 g/dL (6.3-8.2) 10/16/21 09:07 Albumin 4.1 g/dL (3.9-5) 10/16/21 09:07 Albumin/Globulin Ratio 1.6 % 10/16/21 09:07 Triglycerides 64 mg/dL (2-149) 10/16/21 09:07 Cholesterol 171 mg/dL (50-199) 10/16/21 09:07 LDL Cholesterol Direct 91 mg/dL (50-130) 10/16/21 09:07 HDL Cholesterol 60 mg/dL (40-59) H 10/16/21 09:07 Cholesterol/HDL Ratio 2.85 % 10/16/21 09:07 TSH 1.530 mlU/mL (0.270-4.200) 10/16/21 09:07 Last Vital Signs Temp 98.3 F 10/17/21 19:42 Pulse 108 H 10/17/21 20:21 Resp 16 10/17/21 20:21 BP 130/53 10/17/21 19:42 Pulse Ox 99 10/17/21 19:42
[2021-10-18] MEDS: ARFORMOTEROL 15 MCG/2 ML NEBU IH SCH (08:48)
[2021-10-18] MEDS: BUDESONIDE 0.5 MG/2 ML NEBU IH SCH ×2 (08:48→09:14)
[2021-10-18] MEDS: amLODIPine 5 MG TAB PO SCH (10:14)
[2021-10-18] MEDS: hydrOXYzine HCL 25 MG TAB PO SCH ×2 (10:14→21:47)
[2021-10-18] MEDS: VENLAFAXINE XR 75 MG CAP PO SCH (10:15)
[2021-10-18] MEDS: QUEtiapine 200 MG TAB PO SCH ×2 (10:15→21:47)
[2021-10-18] MEDS: buPROPion XL 150 MG TAB PO SCH (11:11)
[2021-10-18] MEDS: traZODone 50 MG TAB PO SCH ×3 (21:45→22:00)
[2021-10-19] MEDS: BUDESONIDE 0.5 MG/2 ML NEBU IH SCH ×2 (09:10→09:15)
[2021-10-19] MEDS: ARFORMOTEROL 15 MCG/2 ML NEBU IH SCH ×2 (09:13→09:15)
--- NOTE | 2021-10-19 09:24 | Progress Note ---
Subjective Date of service: 10/19/21 Principal diagnosis: Major Depressive Disorder Subjective Comment: 10/19: The patient was seen today. She reports feeling better. She reports sleep and appetite as good. She continues to endorse depression rating as 4/10. She denies any current suicidal/homicidal ideation and denies hallucinations. No changes made today. 10/18:The patient was seen today. She reports sleep as poor. the patient continues to endorse depression rating as 8/10. She denies any current suicidal/homicidal ideation and denies hallucinations. Started Wellbutrin XL 150mg po daily. 10/17:The patient was seen today. She verbalizes still feeling depressed. She endorses SI with no plan at this time. She says "only cause I'm here. That's why I don't have a plan." She denies hallucinations. REVIEW OF SYSTEMS Constitutional: Negative for weight loss ENT: Negative for stridor Respiratory: Negative for cough or hemoptysis All other systems reviewed and are negative MENTAL STATUS EXAMINATION General Appearance and Behavior: Age appropriate, wearing appropriate clothes, cooperative, polite with questioning, good eye contact Cooperation: cooperative Psychomotor Behavior: Psychomotor normal Mood: depressed Affect and affective range: Congruent with stated mood Thought Process: goal directed Thought Content: Denies Speech: Normal volume, Regular rate and rhythm Suicidal Ideation: Denies Homicidal Ideation: Denies Hallucination: Denies Delusions: None elicited Impulse Control: Limited Insight and Judgment: Limited Memory: limited Attention:attentive Orientation: Alert and oriented Diagnoses: Major Depressive Disorder Treatment Plan Patient admitted for inpatient psychiatric evaluation, medication adjustment and close monitoring The patient's behavior, mood, sleep and appetite will be closely monitored. Patient enrolled in individual and group therapeutic sessions and encouraged to attend. Patient provided with a safe and structured environment. Patient's physical health needs will be addressed by the Hospitalist. Hospitalist Consulted Labs including CBC, CMP, Lipid profile and Hemoglobin A1C levels ordered for baseline reference Social Assessment will be completed and the Senior Android Software Engineer will work with patient and family to ensure a suitable and safe disposition Medication adjustment will be made as clinically indicated Continue Seroquel 200mg po BID Usual Wellness Buddhism/Preservation: - Start Trazodone 50 mg po QHS & 50 mg po QHS PRN between 10 PM & 2 AM for insomnia - Start Melatonin 5 mg po QHS to promote circadian rhythm The patient agreed on the treatment plan, understood the risk, benefit, alternative treatment, potential consequence of no treatment, and gave informed consent. Estimated days: 3 Post hospital care: primary care provider, psychiatric provider Case staffed with Dr. Joseph Medications and Allergies Medications and Allergies Allergies Allergy/AdvReac Type Severity Reaction Status Date / Time codeine Allergy Hives Verified 10/14/21 18:12 Sulfa (Sulfonamide Allergy Anaphylaxis Verified 10/14/21 18:12 Antibiotics) Home Medications Medication Instructions Recorded Confirmed Last Taken Type Albuterol Sulfate 2.25 mg IH UNK 10/16/21 10/16/21 Unknown History Albuterol Sulfate [Proair 90 mcg IH UNK 10/16/21 10/16/21 Unknown History Digihaler] Fluticasone Propion/Salmeterol 1 puff INHALATION BID 10/16/21 10/16/21 Unknown History [Wixela 250-50 Inhub] Pregabalin [Lyrica] 100 mg PO UNK 10/16/21 10/16/21 Unknown History QUEtiapine [SEROquel] 200 mg PO BID 10/16/21 10/16/21 Unknown History Topiramate [Topamax] 50 mg PO UNK 10/16/21 10/16/21 Unknown History Venlafaxine HCl [Venlafaxine HCl 150 mg PO DAILY 10/16/21 10/16/21 Unknown History ER] amLODIPine [Norvasc] 5 mg PO DAILY 10/16/21 10/16/21 Unknown History buPROPion [Wellbutrin] 1 tab PO BID 10/16/21 10/16/21 Unknown History buPROPion [Wellbutrin] 1 tab PO BID 10/16/21 10/16/21 Unknown History hydrOXYzine HCL 1 tab PO BID 10/16/21 10/16/21 10/15/21 History Pregabalin [Lyrica] 100 mg PO BID 10/18/21 10/18/21 Unknown History Topiramate [Topamax] 50 mg PO QHS 10/18/21 10/18/21 Unknown History Active Meds: Active Medications Acetaminophen (Acetaminophen 325 Mg Tab) 650 mg PO Q6H PRN PRN Reason: Pain, Mild (1-3) Last Admin: 10/16/21 13:26 Dose: 650 mg Albuterol (Albuterol 2.5 Mg/3 Ml Nebu) 2.5 mg IH Q4HRT PRN PRN Reason: Shortness Of Breath Amlodipine Besylate (Amlodipine 5 Mg Tab) 5 mg PO DAILY [facility] Last Admin: 10/18/21 10:14 Dose: 5 mg Arformoterol Tartrate (Arformoterol 15 Mcg/2 Ml Nebu) 15 mcg IH Q12HRT [facility] Last Admin: 10/19/21 09:15 Dose: 15 mcg Budesonide (Budesonide 0.5 Mg/2 Ml Nebu) 0.5 mg IH Q12HRT [facility] Last Admin: 10/19/21 09:15 Dose: 0.5 mg Bupropion HCl (Bupropion Xl 150 Mg Tab) 150 mg PO QDAY [facility] Last Admin: 10/18/21 11:11 Dose: 150 mg Hydrophilic Ointment (Lip Therapy Vaseline) 1 applic TP DIRECT PRN PRN Reason: Dry Lips Hydroxyzine HCl (Hydroxyzine Hcl 25 Mg Tab) 50 mg PO BID [facility] Last Admin: 10/18/21 21:47 Dose: 50 mg Pregabalin (Pregabalin 50 Mg Cap) 100 mg PO BID [facility] Quetiapine Fumarate (Quetiapine 200 Mg Tab) 200 mg PO BID [facility] Last Admin: 10/18/21 21:47 Dose: 200 mg Topiramate (Topiramate Tab 25 Mg Tab) 50 mg PO QHS JOSE Trazodone HCl (Trazodone 50 Mg Tab) 50 mg PO QHS [facility] Last Admin: 10/18/21 21:45 Dose: 50 mg Venlafaxine HCl (Venlafaxine Xr 75 Mg Cap) 150 mg PO QDAY [facility] Last Admin: 10/18/21 10:15 Dose: 150 mg Results - Results Labs/Vitals: Laboratory Last Values WBC 5.7 K/mm3 (4.5-11.0) 10/16/21 09:07 RBC 4.02 M/mm3 (3.65-5.03) 10/16/21 09:07 Hgb 10.9 gm/dl (10.1-14.3) 10/16/21 09:07 Hct 32.5 % (30.3-42.9) 10/16/21 09:07 MCV 81 fl (79-97) 10/16/21 09:07 MCH 27 pg (28-32) L 10/16/21 09:07 MCHC 34 % (30-34) 10/16/21 09:07 RDW 17.5 % (13.2-15.2) H 10/16/21 09:07 Plt Count 297 K/mm3 (140-440) 10/16/21 09:07 Lymph % (Auto) 45.2 % (13.4-35.0) H 10/16/21 09:07 [place] % (Auto) 9.3 % (0.0-7.3) H 10/16/21 09:07 Eos % (Auto) 5.3 % (0.0-4.3) H 10/16/21 09:07 Baso % (Auto) 1.3 % (0.0-1.8) 10/16/21 09:07 Lymph # (Auto) 2.6 K/mm3 (1.2-5.4) 10/16/21 09:07 [place] # (Auto) 0.5 K/mm3 (0.0-0.8) 10/16/21 09:07 Eos # (Auto) 0.3 K/mm3 (0.0-0.4) 10/16/21 09:07 Baso # (Auto) 0.1 K/mm3 (0.0-0.1) 10/16/21 09:07 Seg Neutrophils % 38.9 % (40.0-70.0) L 10/16/21 09:07 Seg Neutrophils # 2.2 K/mm3 (1.8-7.7) 10/16/21 09:07 Sodium 141 mmol/L (137-145) 10/16/21 09:07 Potassium 3.9 mmol/L (3.6-5.0) 10/16/21 09:07 Chloride 106.6 mmol/L (98-107) 10/16/21 09:07 Carbon Dioxide 24 mmol/L (22-30) 10/16/21 09:07 Anion Gap 14 mmol/L 10/16/21 09:07 BUN 18 mg/dL (7-17) H 10/16/21 09:07 Creatinine 1.4 mg/dL (0.6-1.2) H 10/16/21 09:07 Estimated GFR 46 ml/min 10/16/21 09:07 BUN/Creatinine Ratio 13 % 10/16/21 09:07 Glucose 80 mg/dL (65-100) 10/16/21 09:07 POC Glucose 102 mg/dL (70-105) 10/16/21 17:05 Hemoglobin A1c 5.6 % (4-6) 10/16/21 09:07 Calcium 9.4 mg/dL (8.4-10.2) 10/16/21 09:07 Total Bilirubin 0.30 mg/dL (0.1-1.2) 10/16/21 09:07 AST 19 units/L (5-40) 10/16/21 09:07 ALT 17 units/L (7-56) 10/16/21 09:07 Alkaline Phosphatase 103 units/L (35-129) 10/16/21 09:07 Total Protein 6.7 g/dL (6.3-8.2) 10/16/21 09:07 Albumin 4.1 g/dL (3.9-5) 10/16/21 09:07 Albumin/Globulin Ratio 1.6 % 10/16/21 09:07 Triglycerides 64 mg/dL (2-149) 10/16/21 09:07 Cholesterol 171 mg/dL (50-199) 10/16/21 09:07 LDL Cholesterol Direct 91 mg/dL (50-130) 10/16/21 09:07 HDL Cholesterol 60 mg/dL (40-59) H 10/16/21 09:07 Cholesterol/HDL Ratio 2.85 % 10/16/21 09:07 TSH 1.530 mlU/mL (0.270-4.200) 10/16/21 09:07 Last Vital Signs Temp 98.4 F 10/18/21 19:26 Pulse 108 H 10/18/21 19:26 Resp 17 10/18/21 19:26 BP 145/85 10/18/21 19:26 Pulse Ox 95 10/18/21 19:26
[2021-10-19] MEDS: PREGABALIN 50 MG CAP PO SCH ×2 (10:13→21:41)
[2021-10-19] MEDS: amLODIPine 5 MG TAB PO SCH (10:13)
[2021-10-19] MEDS: hydrOXYzine HCL 25 MG TAB PO SCH ×2 (10:14→21:41)
[2021-10-19] MEDS: QUEtiapine 200 MG TAB PO SCH ×2 (10:14→21:42)
[2021-10-19] MEDS: buPROPion XL 150 MG TAB PO SCH (10:14)
[2021-10-19] MEDS: VENLAFAXINE XR 75 MG CAP PO SCH (10:14)
[2021-10-19] MEDS: traZODone 50 MG TAB PO SCH (21:41)
[2021-10-19] MEDS: TOPIRAMATE TAB 25 MG TAB PO SCH (21:42)
[2021-10-20] MEDS: QUEtiapine 200 MG TAB PO SCH ×2 (09:17→22:28)
[2021-10-20] MEDS: VENLAFAXINE XR 75 MG CAP PO SCH (09:17)
[2021-10-20] MEDS: PREGABALIN 50 MG CAP PO SCH ×2 (09:17→22:29)
[2021-10-20] MEDS: buPROPion XL 150 MG TAB PO SCH (09:17)
[2021-10-20] MEDS: amLODIPine 5 MG TAB PO SCH (09:18)
[2021-10-20] MEDS: hydrOXYzine HCL 25 MG TAB PO SCH ×2 (09:18→22:29)
--- NOTE | 2021-10-20 09:39 | Progress Note ---
Subjective Date of service: 10/20/21 Principal diagnosis: Major Depressive Disorder Subjective Comment: 10/20:The patient was seen today. She is calm and cooperative. She reports doing ok. She denies depression today. She denies any current suicidal/homicidal ideation and denies hallucinations. No changes made today. 10/19: The patient was seen today. She reports feeling better. She reports sleep and appetite as good. She continues to endorse depression rating as 4/10. She denies any current suicidal/homicidal ideation and denies hallucinations. No changes made today. 10/18:The patient was seen today. She reports sleep as poor. the patient continues to endorse depression rating as 8/10. She denies any current suicidal/homicidal ideation and denies hallucinations. Started Wellbutrin XL 150mg po daily. 10/17:The patient was seen today. She verbalizes still feeling depressed. She endorses SI with no plan at this time. She says "only cause I'm here. That's why I don't have a plan." She denies hallucinations. REVIEW OF SYSTEMS Constitutional: Negative for weight loss ENT: Negative for stridor Respiratory: Negative for cough or hemoptysis All other systems reviewed and are negative MENTAL STATUS EXAMINATION General Appearance and Behavior: Age appropriate, wearing appropriate clothes, cooperative, polite with questioning, good eye contact Cooperation: cooperative Psychomotor Behavior: Psychomotor normal Mood: OK Affect and affective range: Congruent with stated mood Thought Process: Goal directed Thought Content: Reality oriented Speech: Normal volume, Regular rate and rhythm Suicidal Ideation: Denies Homicidal Ideation: Denies Hallucination: Denies Delusions: None elicited Impulse Control: Limited Insight and Judgment: Limited Memory: limited Attention:attentive Orientation: Alert and oriented Diagnoses: Major Depressive Disorder Treatment Plan Patient admitted for inpatient psychiatric evaluation, medication adjustment and close monitoring The patient's behavior, mood, sleep and appetite will be closely monitored. Patient enrolled in individual and group therapeutic sessions and encouraged to attend. Patient provided with a safe and structured environment. Patient's physical health needs will be addressed by the Hospitalist. Hospitalist Consulted Labs including CBC, CMP, Lipid profile and Hemoglobin A1C levels ordered for baseline reference Social Assessment will be completed and the Separator Operator will work with patient and family to ensure a suitable and safe disposition Medication adjustment will be made as clinically indicated Continue Seroquel 200mg po BID Usual Wellness Voodoo/Preservation: - Start Trazodone 50 mg po QHS & 50 mg po QHS PRN between 10 PM & 2 AM for insomnia - Start Melatonin 5 mg po QHS to promote circadian rhythm The patient agreed on the treatment plan, understood the risk, benefit, alternative treatment, potential consequence of no treatment, and gave informed consent. Estimated days: 3 Post hospital care: primary care provider, psychiatric provider Case staffed with Dr. Joseph Medications and Allergies Medications and Allergies Allergies Allergy/AdvReac Type Severity Reaction Status Date / Time codeine Allergy Hives Verified 10/14/21 18:12 Sulfa (Sulfonamide Allergy Anaphylaxis Verified 10/14/21 18:12 Antibiotics) Home Medications Medication Instructions Recorded Confirmed Last Taken Type Albuterol Sulfate 2.25 mg IH [facility] 10/16/21 10/16/21 Unknown History Albuterol Sulfate [Proair 90 mcg IH K 10/16/21 10/16/21 Unknown History Digihaler] Fluticasone Propion/Salmeterol 1 puff INHALATION BID 10/16/21 10/16/21 Unknown History [Wixela 250-50 Inhub] Pregabalin [Lyrica] 100 mg PO UNK 10/16/21 10/16/21 Unknown History QUEtiapine [SEROquel] 200 mg PO BID 10/16/21 10/16/21 Unknown History Topiramate [Topamax] 50 mg PO UNK 10/16/21 10/16/21 Unknown History Venlafaxine HCl [Venlafaxine HCl 150 mg PO DAILY 10/16/21 10/16/21 Unknown History ER] amLODIPine [Norvasc] 5 mg PO DAILY 10/16/21 10/16/21 Unknown History buPROPion [Wellbutrin] 1 tab PO BID 10/16/21 10/16/21 Unknown History buPROPion [Wellbutrin] 1 tab PO BID 10/16/21 10/16/21 Unknown History hydrOXYzine HCL 1 tab PO BID 10/16/21 10/16/21 10/15/21 History Pregabalin [Lyrica] 100 mg PO BID 10/18/21 10/18/21 Unknown History Topiramate [Topamax] 50 mg PO QHS 10/18/21 10/18/21 Unknown History Active Meds: Active Medications Acetaminophen (Acetaminophen 325 Mg Tab) 650 mg PO Q6H PRN PRN Reason: Pain, Mild (1-3) Last Admin: 10/16/21 13:26 Dose: 650 mg Albuterol (Albuterol 2.5 Mg/3 Ml Nebu) 2.5 mg IH Q4HRT PRN PRN Reason: Shortness Of Breath Amlodipine Besylate (Amlodipine 5 Mg Tab) 5 mg PO DAILY [facility] Last Admin: 10/20/21 09:18 Dose: 5 mg Arformoterol Tartrate (Arformoterol 15 Mcg/2 Ml Nebu) 15 mcg IH Q12HRT [facility] Last Admin: 10/19/21 09:15 Dose: 15 mcg Budesonide (Budesonide 0.5 Mg/2 Ml Nebu) 0.5 mg IH Q12HRT [facility] Last Admin: 10/19/21 09:15 Dose: 0.5 mg Bupropion HCl (Bupropion Xl 150 Mg Tab) 150 mg PO QDAY [facility] Last Admin: 10/20/21 09:17 Dose: 150 mg Hydrophilic Ointment (Lip Therapy Vaseline) 1 applic TP DIRECT PRN PRN Reason: Dry Lips Hydroxyzine HCl (Hydroxyzine Hcl 25 Mg Tab) 50 mg PO BID [facility] Last Admin: 10/20/21 09:18 Dose: 50 mg Pregabalin (Pregabalin 50 Mg Cap) 100 mg PO BID [facility] Last Admin: 10/20/21 09:17 Dose: 100 mg Quetiapine Fumarate (Quetiapine 200 Mg Tab) 200 mg PO BID [facility] Last Admin: 10/20/21 09:17 Dose: 200 mg Topiramate (Topiramate Tab 25 Mg Tab) 50 mg PO QHS [facility] Last Admin: 10/19/21 21:42 Dose: 50 mg Trazodone HCl (Trazodone 50 Mg Tab) 50 mg PO QHS [facility] Last Admin: 10/19/21 21:41 Dose: 50 mg Venlafaxine HCl (Venlafaxine Xr 75 Mg Cap) 150 mg PO QDAY [facility] Last Admin: 10/20/21 09:17 Dose: 150 mg Results - Results Labs/Vitals: Laboratory Last Values WBC 5.7 K/mm3 (4.5-11.0) 10/16/21 09:07 RBC 4.02 M/mm3 (3.65-5.03) 10/16/21 09:07 Hgb 10.9 gm/dl (10.1-14.3) 10/16/21 09:07 Hct 32.5 % (30.3-42.9) 10/16/21 09:07 MCV 81 fl (79-97) 10/16/21 09:07 MCH 27 pg (28-32) L 10/16/21 09:07 MCHC 34 % (30-34) 10/16/21 09:07 RDW 17.5 % (13.2-15.2) H 10/16/21 09:07 Plt Count 297 K/mm3 (140-440) 10/16/21 09:07 Lymph % (Auto) 45.2 % (13.4-35.0) H 10/16/21 09:07 [place] % (Auto) 9.3 % (0.0-7.3) H 10/16/21 09:07 Eos % (Auto) 5.3 % (0.0-4.3) H 10/16/21 09:07 Baso % (Auto) 1.3 % (0.0-1.8) 10/16/21 09:07 Lymph # (Auto) 2.6 K/mm3 (1.2-5.4) 10/16/21 09:07 [place] # (Auto) 0.5 K/mm3 (0.0-0.8) 10/16/21 09:07 Eos # (Auto) 0.3 K/mm3 (0.0-0.4) 10/16/21 09:07 Baso # (Auto) 0.1 K/mm3 (0.0-0.1) 10/16/21 09:07 Seg Neutrophils % 38.9 % (40.0-70.0) L 10/16/21 09:07 Seg Neutrophils # 2.2 K/mm3 (1.8-7.7) 10/16/21 09:07 Sodium 141 mmol/L (137-145) 10/16/21 09:07 Potassium 3.9 mmol/L (3.6-5.0) 10/16/21 09:07 Chloride 106.6 mmol/L (98-107) 10/16/21 09:07 Carbon Dioxide 24 mmol/L (22-30) 10/16/21 09:07 Anion Gap 14 mmol/L 10/16/21 09:07 BUN 18 mg/dL (7-17) H 10/16/21 09:07 Creatinine 1.4 mg/dL (0.6-1.2) H 10/16/21 09:07 Estimated GFR 46 ml/min 10/16/21 09:07 BUN/Creatinine Ratio 13 % 10/16/21 09:07 Glucose 80 mg/dL (65-100) 10/16/21 09:07 POC Glucose 102 mg/dL (70-105) 10/16/21 17:05 Hemoglobin A1c 5.6 % (4-6) 10/16/21 09:07 Calcium 9.4 mg/dL (8.4-10.2) 10/16/21 09:07 Total Bilirubin 0.30 mg/dL (0.1-1.2) 10/16/21 09:07 AST 19 units/L (5-40) 10/16/21 09:07 ALT 17 units/L (7-56) 10/16/21 09:07 Alkaline Phosphatase 103 units/L (35-129) 10/16/21 09:07 Total Protein 6.7 g/dL (6.3-8.2) 10/16/21 09:07 Albumin 4.1 g/dL (3.9-5) 10/16/21 09:07 Albumin/Globulin Ratio 1.6 % 10/16/21 09:07 Triglycerides 64 mg/dL (2-149) 10/16/21 09:07 Cholesterol 171 mg/dL (50-199) 10/16/21 09:07 LDL Cholesterol Direct 91 mg/dL (50-130) 10/16/21 09:07 HDL Cholesterol 60 mg/dL (40-59) H 10/16/21 09:07 Cholesterol/HDL Ratio 2.85 % 10/16/21 09:07 TSH 1.530 mlU/mL (0.270-4.200) 10/16/21 09:07 Last Vital Signs Temp 98.4 F 10/19/21 19:31 Pulse 101 H 10/20/21 09:18 Resp 14 10/19/21 19:31 BP 133/70 10/20/21 09:18 Pulse Ox 100 10/19/21 19:31
--- NOTE | 2021-10-20 19:18 | Progress Note ---
Assessment and Plan - Patient Problems (1) Vascular dementia with behavior disturbance Current Visit: Yes Status: Acute Plan to address problem: Verbal prompting, verbal redirection, benzodiazepine therapy as clinically indicated, (2) Cerebral atherosclerosis Current Visit: Yes Status: Acute Plan to address problem: Risk factor reduction, antiplatelet therapy as clinically indicated, supportive care. (3) HTN (hypertension) Current Visit: Yes Status: Acute Qualifiers: Hypertension type: primary hypertension Qualified Code(s): I10 - Essential (primary) hypertension Plan to address problem: Monitor blood pressure every shift, continue medical management. (4) Diabetes Current Visit: Yes Status: Acute Plan to address problem: Consistent carbohydrate diet, Accu-Chek, insulin protocol, hypoglycemia pr otocol. (5) MDD (major depressive disorder) Current Visit: Yes Status: Acute Qualifiers: Major depression episode severity: unspecified Plan to address problem: Supportive care, continue medical management. (6) JACQUELYN (generalized anxiety disorder) Current Visit: Yes Status: Acute Plan to address problem: Benzodiazepine therapy as clinically indicated. Verbal redirection, supportive care. (7) Fibromyalgia Current Visit: Yes Status: Acute Plan to address problem: Continue current therapy, outpatient rheumatology follow-up. (8) Osteoarthritis Current Visit: Yes Status: Acute Plan to address problem: NSAID therapy, supportive care. Pain control. (9) Obesity (BMI 30.0-34.9) Current Visit: Yes Status: Acute Plan to address problem: Balanced diet, increase physical activity discharge, outpatient pulmonary follow-up for sleep study. (10) Advance care planning Current Visit: Yes Status: Acute Plan to address problem: Disease education conducted, care plan discussed, diagnoses discussed, prognosis discussed, patient is full code. Patient knowledges understanding and agreement with care plan, +30 minutes. (11) Preventative health care Current Visit: Yes Status: Acute Plan to address problem: Patient counseled regarding balanced diet, risk factor reduction, medication compliance, increase physical activity at discharge, weight reduction, patient instructed to follow-up with primary care physician for all age and risk factor appropriate screening tests. History Interval history: 66 YO Female with Vascular Dementia with Behavioral Disturbance, Cerebral Atherosclerosis, HTN, Diet Controlled DM, FM, CPS, OA, MDD, JACQUELYN, Obesity. Pt is admitted to [place] psych unit for psychiatric stabilization. Consult placed by Dr. Kolb for medical management. Patient seen and evaluated in the recreation room. Patient remains at baseline level of cognition and function. No reported nursing events. Hospitalist Physical - Constitutional Vitals: Temp Pulse Resp BP Pulse Ox 98.2 F 101 H 18 117/64 100 10/20/21 18:45 10/20/21 18:45 10/20/21 18:45 10/20/21 18:45 10/20/21 18:45 General appearance: Present: no acute distress, obese - EENT Eyes: Present: PERRL, EOM intact ENT: hearing intact, hearing decreased - Neck Neck: Present: supple - Respiratory Respiratory effort: normal Respiratory: bilateral: CTA - Cardiovascular Rhythm: regular Heart Sounds: Present: S1 & S2 - Extremities Extremities: no ischemia Peripheral Pulses: within normal limits - Abdominal General gastrointestinal: soft, non-tender, non-distended - Integumentary Integumentary: Present: clear, dry - Psychiatric Psychiatric: cooperative - Neurologic Neurologic: CNII-XII intact Results - Labs CBC & Chem 7: 10/16/21 09:07 10/16/21 09:07 Labs: Laboratory Last Values WBC 5.7 K/mm3 (4.5-11.0) 10/16/21 09:07 RBC 4.02 M/mm3 (3.65-5.03) 10/16/21 09:07 Hgb 10.9 gm/dl (10.1-14.3) 10/16/21 09:07 Hct 32.5 % (30.3-42.9) 10/16/21 09:07 MCV 81 fl (79-97) 10/16/21 09:07 MCH 27 pg (28-32) L 10/16/21 09:07 MCHC 34 % (30-34) 10/16/21 09:07 RDW 17.5 % (13.2-15.2) H 10/16/21 09:07 Plt Count 297 K/mm3 (140-440) 10/16/21 09:07 Lymph % (Auto) 45.2 % (13.4-35.0) H 10/16/21 09:07 [place] % (Auto) 9.3 % (0.0-7.3) H 10/16/21 09:07 Eos % (Auto) 5.3 % (0.0-4.3) H 10/16/21 09:07 Baso % (Auto) 1.3 % (0.0-1.8) 10/16/21 09:07 Lymph # (Auto) 2.6 K/mm3 (1.2-5.4) 10/16/21 09:07 [place] # (Auto) 0.5 K/mm3 (0.0-0.8) 10/16/21 09:07 Eos # (Auto) 0.3 K/mm3 (0.0-0.4) 10/16/21 09:07 Baso # (Auto) 0.1 K/mm3 (0.0-0.1) 10/16/21 09:07 Seg Neutrophils % 38.9 % (40.0-70.0) L 10/16/21 09:07 Seg Neutrophils # 2.2 K/mm3 (1.8-7.7) 10/16/21 09:07 Sodium 141 mmol/L (137-145) 10/16/21 09:07 Potassium 3.9 mmol/L (3.6-5.0) 10/16/21 09:07 Chloride 106.6 mmol/L (98-107) 10/16/21 09:07 Carbon Dioxide 24 mmol/L (22-30) 10/16/21 09:07 Anion Gap 14 mmol/L 10/16/21 09:07 BUN 18 mg/dL (7-17) H 10/16/21 09:07 Creatinine 1.4 mg/dL (0.6-1.2) H 10/16/21 09:07 Estimated GFR 46 ml/min 10/16/21 09:07 BUN/Creatinine Ratio 13 % 10/16/21 09:07 Glucose 80 mg/dL (65-100) 10/16/21 09:07 POC Glucose 102 mg/dL (70-105) 10/16/21 17:05 Hemoglobin A1c 5.6 % (4-6) 10/16/21 09:07 Calcium 9.4 mg/dL (8.4-10.2) 10/16/21 09:07 Total Bilirubin 0.30 mg/dL (0.1-1.2) 10/16/21 09:07 AST 19 units/L (5-40) 10/16/21 09:07 ALT 17 units/L (7-56) 10/16/21 09:07 Alkaline Phosphatase 103 units/L (35-129) 10/16/21 09:07 Total Protein 6.7 g/dL (6.3-8.2) 10/16/21 09:07 Albumin 4.1 g/dL (3.9-5) 10/16/21 09:07 Albumin/Globulin Ratio 1.6 % 10/16/21 09:07 Triglycerides 64 mg/dL (2-149) 10/16/21 09:07 Cholesterol 171 mg/dL (50-199) 10/16/21 09:07 LDL Cholesterol Direct 91 mg/dL (50-130) 10/16/21 09:07 HDL Cholesterol 60 mg/dL (40-59) H 10/16/21 09:07 Cholesterol/HDL Ratio 2.85 % 10/16/21 09:07 TSH 1.530 mlU/mL (0.270-4.200) 10/16/21 09:07 [place]/IV: Voiding Method Toilet Active Medications - Current Medications Current Medications: Generic Name Dose Route Start Last Admin Trade Name Freq PRN Reason Stop Dose Admin Acetaminophen 650 mg 10/15/21 23:20 10/16/21 13:26 Acetaminophen 325 Mg Tab PO 650 mg Q6H PRN Administration Pain, Mild (1-3) Albuterol 2.5 mg 10/16/21 12:03 Albuterol 2.5 Mg/3 Ml Nebu IH Q4HRT PRN Shortness Of Breath Amlodipine Besylate 5 mg 10/16/21 11:00 10/20/21 09:18 Amlodipine 5 Mg Tab PO 5 mg DAILY JOSE Administration Arformoterol Tartrate 15 mcg 10/16/21 20:00 10/19/21 09:15 Arformoterol 15 Mcg/2 Ml Nebu IH 15 mcg Q12HRT JOSE Administration Budesonide 0.5 mg 10/16/21 20:00 10/19/21 09:15 Budesonide 0.5 Mg/2 Ml Nebu IH 0.5 mg Q12HRT JOSE Administration Bupropion HCl 150 mg 10/18/21 10:00 10/20/21 09:17 Bupropion Xl 150 Mg Tab PO 150 mg QDAY JOSE Administration Hydrophilic Ointment 1 applic 10/17/21 15:36 Lip Therapy Vaseline TP DIRECT PRN Dry Lips Hydroxyzine HCl 50 mg 10/16/21 22:00 10/20/21 09:18 Hydroxyzine Hcl 25 Mg Tab PO 50 mg BID JOSE Administration Pregabalin 100 mg 10/19/21 10:00 10/20/21 09:17 Pregabalin 50 Mg Cap PO 100 mg BID JOSE Administration Quetiapine Fumarate 200 mg 10/16/21 11:00 10/20/21 09:17 Quetiapine 200 Mg Tab PO 200 mg BID JOSE Administration Topiramate 50 mg 10/19/21 22:00 10/19/21 21:42 Topiramate Tab 25 Mg Tab PO 50 mg QHS JOSE Administration Trazodone HCl 50 mg 10/15/21 23:00 10/19/21 21:41 Trazodone 50 Mg Tab PO 50 mg QHS JOSE Administration Venlafaxine HCl 150 mg 10/16/21 12:00 10/20/21 09:17 Venlafaxine Xr 75 Mg Cap PO 150 mg QDAY [facility] Administration
[2021-10-20] MEDS: BUDESONIDE 0.5 MG/2 ML NEBU IH SCH ×3 (20:40→20:53)
[2021-10-20] MEDS: ARFORMOTEROL 15 MCG/2 ML NEBU IH SCH ×3 (20:40→20:53)
[2021-10-20] MEDS: TOPIRAMATE TAB 25 MG TAB PO SCH (22:26)
[2021-10-20] MEDS: traZODone 50 MG TAB PO SCH (22:28)
[2021-10-20] MEDS: ACETAMINOPHEN 325 MG TAB PO PRN (22:30)
[2021-10-21] MEDS: BUDESONIDE 0.5 MG/2 ML NEBU IH SCH ×2 (08:30→23:35)
[2021-10-21] MEDS: ARFORMOTEROL 15 MCG/2 ML NEBU IH SCH ×2 (08:30→23:35)
--- NOTE | 2021-10-21 08:56 | Progress Note ---
Subjective Date of service: 10/21/21 Principal diagnosis: Major Depressive Disorder Subjective Comment: 10/21: The patient was seen today. The patient states she is doing well. She is calm and denies depression today. She denies any current suicidal/homicidal ideation and denies hallucinations. No changes made today. 10/20:The patient was seen today. She is calm and cooperative. She reports doing ok. She denies depression today. She denies any current suicidal/homicidal ideation and denies hallucinations. No changes made today. 10/19: The patient was seen today. She reports feeling better. She reports sleep and appetite as good. She continues to endorse depression rating as 4/10. She denies any current suicidal/homicidal ideation and denies hallucinations. No changes made today. 10/18:The patient was seen today. She reports sleep as poor. the patient continues to endorse depression rating as 8/10. She denies any current suicidal/homicidal ideation and denies hallucinations. Started Wellbutrin XL 150mg po daily. 10/17:The patient was seen today. She verbalizes still feeling depressed. She endorses SI with no plan at this time. She says "only cause I'm here. That's why I don't have a plan." She denies hallucinations. REVIEW OF SYSTEMS Constitutional: Negative for weight loss ENT: Negative for stridor Respiratory: Negative for cough or hemoptysis All other systems reviewed and are negative MENTAL STATUS EXAMINATION General Appearance and Behavior: Age appropriate, wearing appropriate clothes, cooperative, polite with questioning, good eye contact Cooperation: cooperative Psychomotor Behavior: Psychomotor normal Mood: good Affect and affective range: Congruent with stated mood Thought Process: Goal directed Thought Content: Reality oriented Speech: Normal volume, Regular rate and rhythm Suicidal Ideation: Denies Homicidal Ideation: Denies Hallucination: Denies Delusions: None elicited Impulse Control: Limited Insight and Judgment: Limited Memory: limited Attention:attentive Orientation: Alert and oriented Diagnoses: Major Depressive Disorder Treatment Plan Patient admitted for inpatient psychiatric evaluation, medication adjustment and close monitoring The patient's behavior, mood, sleep and appetite will be closely monitored. Patient enrolled in individual and group therapeutic sessions and encouraged to attend. Patient provided with a safe and structured environment. Patient's physical health needs will be addressed by the Hospitalist. Hospitalist Consulted Labs including CBC, CMP, Lipid profile and Hemoglobin A1C levels ordered for baseline reference Social Assessment will be completed and the Manager Behavior will work with patient and family to ensure a suitable and safe disposition Medication adjustment will be made as clinically indicated Continue Seroquel 200mg po BID Usual Wellness Christianity/Preservation: - Start Trazodone 50 mg po QHS & 50 mg po QHS PRN between 10 PM & 2 AM for insomnia - Start Melatonin 5 mg po QHS to promote circadian rhythm The patient agreed on the treatment plan, understood the risk, benefit, alternative treatment, potential consequence of no treatment, and gave informed consent. Estimated days: 3 Post hospital care: primary care provider, psychiatric provider Case staffed with Dr. Joseph Medications and Allergies Medications and Allergies Medications and Allergies Allergies Allergy/AdvReac Type Severity Reaction Status Date / Time codeine Allergy Hives Verified 10/14/21 18:12 Sulfa (Sulfonamide Allergy Anaphylaxis Verified 10/14/21 18:12 Antibiotics) Home Medications Medication Instructions Recorded Confirmed Last Taken Type Albuterol Sulfate 2.25 mg [facility] 10/16/21 10/16/21 Unknown History Albuterol Sulfate [Proair 90 mcg [facility] 10/16/21 10/16/21 Unknown History Digihaler] Fluticasone Propion/Salmeterol 1 puff INHALATION BID 10/16/21 10/16/21 Unknown H istory [Wixela 250-50 Inhub] Pregabalin [Lyrica] 100 mg PO [facility] 10/16/21 10/16/21 Unknown History QUEtiapine [SEROquel] 200 mg PO BID 10/16/21 10/16/21 Unknown History Topiramate [Topamax] 50 mg PO [facility] 10/16/21 10/16/21 Unknown History Venlafaxine HCl [Venlafaxine HCl 150 mg PO DAILY 10/16/21 10/16/21 Unknown History ER] amLODIPine [Norvasc] 5 mg PO DAILY 10/16/21 10/16/21 Unknown History buPROPion [Wellbutrin] 1 tab PO BID 10/16/21 10/16/21 Unknown History buPROPion [Wellbutrin] 1 tab PO BID 10/16/21 10/16/21 Unknown History hydrOXYzine HCL 1 tab PO BID 10/16/21 10/16/21 10/15/21 History Pregabalin [Lyrica] 100 mg PO BID 10/18/21 10/18/21 Unknown History Topiramate [Topamax] 50 mg PO QHS 10/18/21 10/18/21 Unknown History Active Meds: Active Medications Acetaminophen (Acetaminophen 325 Mg Tab) 650 mg PO Q6H PRN PRN Reason: Pain, Mild (1-3) Last Admin: 10/20/21 22:30 Dose: 650 mg Albuterol (Albuterol 2.5 Mg/3 Ml Nebu) 2.5 mg [facility] Q4HRT PRN PRN Reason: Shortness Of Breath Amlodipine Besylate (Amlodipine 5 Mg Tab) 5 mg PO DAILY [facility] Last Admin: 10/20/21 09:18 Dose: 5 mg Arformoterol Tartrate (Arformoterol 15 Mcg/2 Ml Nebu) 15 mcg [facility] Q12HRT [facility] Last Admin: 10/20/21 20:53 Dose: Not Given Budesonide (Budesonide 0.5 Mg/2 Ml Nebu) 0.5 mg [facility] Q12HRT [facility] Last Admin: 10/20/21 20:53 Dose: Not Given Bupropion HCl (Bupropion Xl 150 Mg Tab) 150 mg PO QDAY [facility] Last Admin: 10/20/21 09:17 Dose: 150 mg Hydrophilic Ointment (Lip Therapy Vaseline) 1 applic TP DIRECT PRN PRN Reason: Dry Lips Hydroxyzine HCl (Hydroxyzine Hcl 25 Mg Tab) 50 mg PO BID [facility] Last Admin: 10/20/21 22:29 Dose: 50 mg Pregabalin (Pregabalin 50 Mg Cap) 100 mg PO BID [facility] Last Admin: 10/20/21 22:29 Dose: 100 mg Quetiapine Fumarate (Quetiapine 200 Mg Tab) 200 mg PO BID [facility] Last Admin: 10/20/21 22:28 Dose: 200 mg Topiramate (Topiramate Tab 25 Mg Tab) 50 mg PO QHS [facility] Last Admin: 10/20/21 22:26 Dose: 50 mg Trazodone HCl (Trazodone 50 Mg Tab) 50 mg PO QHS [facility] Last Admin: 10/20/21 22:28 Dose: 50 mg Venlafaxine HCl (Venlafaxine Xr 75 Mg Cap) 150 mg PO QDAY [facility] Last Admin: 10/20/21 09:17 Dose: 150 mg Results - Results Labs/Vitals: Laboratory Last Values WBC 5.7 K/mm3 (4.5-11.0) 10/16/21 09:07 RBC 4.02 M/mm3 (3.65-5.03) 10/16/21 09:07 Hgb 10.9 gm/dl (10.1-14.3) 10/16/21 09:07 Hct 32.5 % (30.3-42.9) 10/16/21 09:07 MCV 81 fl (79-97) 10/16/21 09:07 MCH 27 pg (28-32) L 10/16/21 09:07 MCHC 34 % (30-34) 10/16/21 09:07 RDW 17.5 % (13.2-15.2) H 10/16/21 09:07 Plt Count 297 K/mm3 (140-440) 10/16/21 09:07 Lymph % (Auto) 45.2 % (13.4-35.0) H 10/16/21 09:07 [place] % (Auto) 9.3 % (0.0-7.3) H 10/16/21 09:07 Eos % (Auto) 5.3 % (0.0-4.3) H 10/16/21 09:07 Baso % (Auto) 1.3 % (0.0-1.8) 10/16/21 09:07 Lymph # (Auto) 2.6 K/mm3 (1.2-5.4) 10/16/21 09:07 [place] # (Auto) 0.5 K/mm3 (0.0-0.8) 10/16/21 09:07 Eos # (Auto) 0.3 K/mm3 (0.0-0.4) 10/16/21 09:07 Baso # (Auto) 0.1 K/mm3 (0.0-0.1) 10/16/21 09:07 Seg Neutrophils % 38.9 % (40.0-70.0) L 10/16/21 09:07 Seg Neutrophils # 2.2 K/mm3 (1.8-7.7) 10/16/21 09:07 Sodium 141 mmol/L (137-145) 10/16/21 09:07 Potassium 3.9 mmol/L (3.6-5.0) 10/16/21 09:07 Chloride 106.6 mmol/L (98-107) 10/16/21 09:07 Carbon Dioxide 24 mmol/L (22-30) 10/16/21 09:07 Anion Gap 14 mmol/L 10/16/21 09:07 BUN 18 mg/dL (7-17) H 10/16/21 09:07 Creatinine 1.4 mg/dL (0.6-1.2) H 10/16/21 09:07 Estimated GFR 46 ml/min 10/16/21 09:07 BUN/Creatinine Ratio 13 % 10/16/21 09:07 Glucose 80 mg/dL (65-100) 10/16/21 09:07 POC Glucose 102 mg/dL (70-105) 10/16/21 17:05 Hemoglobin A1c 5.6 % (4-6) 10/16/21 09:07 Calcium 9.4 mg/dL (8.4-10.2) 10/16/21 09:07 Total Bilirubin 0.30 mg/dL (0.1-1.2) 10/16/21 09:07 AST 19 units/L (5-40) 10/16/21 09:07 ALT 17 units/L (7-56) 10/16/21 09:07 Alkaline Phosphatase 103 units/L (35-129) 10/16/21 09:07 Total Protein 6.7 g/dL (6.3-8.2) 10/16/21 09:07 Albumin 4.1 g/dL (3.9-5) 10/16/21 09:07 Albumin/Globulin Ratio 1.6 % 10/16/21 09:07 Triglycerides 64 mg/dL (2-149) 10/16/21 09:07 Cholesterol 171 mg/dL (50-199) 10/16/21 09:07 LDL Cholesterol Direct 91 mg/dL (50-130) 10/16/21 09:07 HDL Cholesterol 60 mg/dL (40-59) H 10/16/21 09:07 Cholesterol/HDL Ratio 2.85 % 10/16/21 09:07 TSH 1.530 mlU/mL (0.270-4.200) 10/16/21 09:07 Last Vital Signs Temp 98.8 F 10/21/21 06:18 Pulse 94 H 10/21/21 06:18 Resp 16 10/21/21 06:18 BP 103/51 10/21/21 06:18 Pulse Ox 100 10/21/21 06:18
[2021-10-21] MEDS: hydrOXYzine HCL 25 MG TAB PO SCH ×2 (10:54→21:15)
[2021-10-21] MEDS: buPROPion XL 150 MG TAB PO SCH (10:54)
[2021-10-21] MEDS: VENLAFAXINE XR 75 MG CAP PO SCH (10:55)
[2021-10-21] MEDS: amLODIPine 5 MG TAB PO SCH (10:55)
[2021-10-21] MEDS: PREGABALIN 50 MG CAP PO SCH ×2 (10:55→21:13)
[2021-10-21] MEDS: QUEtiapine 200 MG TAB PO SCH ×2 (10:55→21:15)
[2021-10-21] MEDS: ACETAMINOPHEN 325 MG TAB PO PRN ×2 (10:55→22:45)
[2021-10-21] MEDS: TOPIRAMATE TAB 25 MG TAB PO SCH (21:14)
[2021-10-21] MEDS: traZODone 50 MG TAB PO SCH (21:15)
--- NOTE | 2021-10-22 07:42 | Progress Note ---
Assessment and Plan Assessment and Plan - Patient Problems (1) Vascular dementia with behavioral disturbance Current Visit: Yes Status: Acute Plan to address problem: Verbal prompting, verbal redirection, benzodiazepine therapy as clinically indicated. (2) Cerebral atherosclerosis Current Visit: Yes Status: Acute Plan to address problem: Risk factor reduction, antiplatelet therapy as clinically indicated, supportive care. (3) Encephalopathy Current Visit: Yes Status: Acute Plan to address problem: Supportive care, verbal redirection. Chronic in nature. (4) Generalized anxiety disorder Current Visit: Yes Status: Acute Plan to address problem: Benzodiazepine therapy as clinically indicated, continue medical management. (5) Malnutrition Current Visit: Yes Status: Acute Qualifiers: Protein-calorie malnutrition severity: moderate Plan to address problem: Dietary supplementation, increase protein intake. (6) Advance care planning Current Visit: Yes Status: Acute Plan to address problem: Disease education data, care plan discussed, diagnoses discussed, prognosis discussed. Patient is DNR as per request. Patient currently admitted to hospice care. +30 minutes. Subjective Date of service: 10/21/21 Principal diagnosis: Major Depressive Disorder Interval history: History Interval history: 80 YO Male with Vascular Dementia with Behavioral Disturbance, Cerebral Atherosclerosis, Encephalopathy, JACQUELYN who is currently on Hospice Care. Pt is AND/DNR as per family request(). Pt is admitted to [place] psych unit for psychiatric stabilization. Consult placed by Dr. Kolb for medical management. Patient seen and evaluated in the recreation room. Patient remains comfortable. Patient exhibits tangential thinking with diminished cognition. No reported Nursing events. Objective - Constitutional General appearance: Present: no acute distress, well-nourished - EENT Eyes: PERRL, EOM intact ENT: hearing intact, clear oral mucosa Ears: bilateral: normal - Neck Neck: supple, normal ROM - Respiratory Respiratory effort: normal Respiratory: bilateral: CTA - Breasts Breasts: normal - Cardiovascular Heart rate: 78 Rhythm: regular Heart Sounds: Present: S1 & S2. Absent: gallop, rub Extremities: pulses intact, No edema, normal color, Full ROM - Gastrointestinal General gastrointestinal: Present: soft, non-tender, non-distended, normal bowel sounds - Genitourinary Female genitourinary: normal - Integumentary Integumentary: clear, warm, dry - Musculoskeletal Musculoskeletal: 1, strength equal bilaterally - Neurologic Neurologic: moves all extremities - Psychiatric Psychiatric: memory intact, appropriate mood/affect, intact judgment & insight - Labs CBC & Chem 7: 10/16/21 09:07 10/16/21 09:07
[2021-10-22 08:06] VITALS: BP 138/76
[2021-10-22] MEDS: ARFORMOTEROL 15 MCG/2 ML NEBU IH SCH (08:23)
[2021-10-22] MEDS: BUDESONIDE 0.5 MG/2 ML NEBU IH SCH (08:23)
--- NOTE | 2021-10-22 09:03 | Discharge Summary ---
Providers - Providers Date of Admission: 10/15/21 18:14 Date of discharge: 10/22/21 Attending physician: NISHA BHAKTA MD 10/15/21 15:58 Consult to Physician [CONS] Routine Comment: Consulting Provider: STANTON ODONNELL Physician Instructions: Reason For Exam: manage medical conditions Primary care physician: KSENIA KLEIN Hospitalization Reason for admission: suicidal ideation Admitting Diagnosis: F33.9 - MAJOR DEPRESSIVE DISORDER, RECURRENT, UNSPECIFIED Condition: Stable Hospital course: The patient was provided inpatient psychiatric treatment with safe and supportive environment, group/individual therapy, psychiatric medication, medication adjustment, adverse effect monitor, medical evaluation, medical treatment, social service assessment, social support meeting, placement assessment and psycho-education. The patients mood, cognition, behavior, motivation, compliance to treatment and appreciation on family/social support are improved and stabilized. At the time of discharge, the patient had no suicidal ideas, no homicidal ideas, no aggressive thoughts, no endangering behavior and no debilitating adverse effects. The patient agreed on the treatment plan, understood the risk, benefit, alternative treatment, potential consequence of no treatment, and gave informed consent. Progress Note: 10/21: The patient was seen today. The patient states she is doing well. She is calm and denies depression today. She denies any current suicidal/homicidal ideation and denies hallucinations. No changes made today. 10/20:The patient was seen today. She is calm and cooperative. She reports doing ok. She denies depression today. She denies any current suicidal/homicidal ideation and denies hallucinations. No changes made today. 10/19: The patient was seen today. She reports feeling better. She reports sleep and appetite as good. She continues to endorse depression rating as 4/10. She denies any current suicidal/homicidal ideation and denies hallucinations. No c hanges made today. 10/18:The patient was seen today. She reports sleep as poor. the patient continues to endorse depression rating as 8/10. She denies any current suicidal/homicidal ideation and denies hallucinations. Started Wellbutrin XL 150mg po daily. 10/17:The patient was seen today. She verbalizes still feeling depressed. She endorses SI with no plan at this time. She says "only cause I'm here. That's why I don't have a plan." She denies hallucinations. Disposition: 01 HOME / SELF CARE / HOMELESS Allergies/Adverse Reactions: Allergies codeine Allergy (Verified 10/14/21 18:12) Hives Sulfa (Sulfonamide Antibiotics) Allergy (Verified 10/14/21 18:12) Anaphylaxis Vital Signs: Last Vital Signs Temp 98.7 F 10/22/21 07:40 Pulse 90 10/22/21 08:26 Resp 17 10/22/21 08:26 BP 138/76 10/22/21 07:40 Pulse Ox 99 10/22/21 07:40 Last Lab: Laboratory Last Values WBC 5.7 K/mm3 (4.5-11.0) 10/16/21 09:07 RBC 4.02 M/mm3 (3.65-5.03) 10/16/21 09:07 Hgb 10.9 gm/dl (10.1-14.3) 10/16/21 09:07 Hct 32.5 % (30.3-42.9) 10/16/21 09:07 MCV 81 fl (79-97) 10/16/21 09:07 MCH 27 pg (28-32) L 10/16/21 09:07 MCHC 34 % (30-34) 10/16/21 09:07 RDW 17.5 % (13.2-15.2) H 10/16/21 09:07 Plt Count 297 K/mm3 (140-440) 10/16/21 09:07 Lymph % (Auto) 45.2 % (13.4-35.0) H 10/16/21 09:07 [place] % (Auto) 9.3 % (0.0-7.3) H 10/16/21 09:07 Eos % (Auto) 5.3 % (0.0-4.3) H 10/16/21 09:07 Baso % (Auto) 1.3 % (0.0-1.8) 10/16/21 09:07 Lymph # (Auto) 2.6 K/mm3 (1.2-5.4) 10/16/21 09:07 [place] # (Auto) 0.5 K/mm3 (0.0-0.8) 10/16/21 09:07 Eos # (Auto) 0.3 K/mm3 (0.0-0.4) 10/16/21 09:07 Baso # (Auto) 0.1 K/mm3 (0.0-0.1) 10/16/21 09:07 Seg Neutrophils % 38.9 % (40.0-70.0) L 10/16/21 09:07 Seg Neutrophils # 2.2 K/mm3 (1.8-7.7) 10/16/21 09:07 Sodium 141 mmol/L (137-145) 10/16/21 09:07 Potassium 3.9 mmol/L (3.6-5.0) 10/16/21 09:07 Chloride 106.6 mmol/L (98-107) 10/16/21 09:07 Carbon Dioxide 24 mmol/L (22-30) 10/16/21 09:07 Anion Gap 14 mmol/L 10/16/21 09:07 BUN 18 mg/dL (7-17) H 10/16/21 09:07 Creatinine 1.4 mg/dL (0.6-1.2) H 10/16/21 09:07 Estimated GFR 46 ml/min 10/16/21 09:07 BUN/Creatinine Ratio 13 % 10/16/21 09:07 Glucose 80 mg/dL (65-100) 10/16/21 09:07 POC Glucose 102 mg/dL (70-105) 10/16/21 17:05 Hemoglobin A1c 5.6 % (4-6) 10/16/21 09:07 Calcium 9.4 mg/dL (8.4-10.2) 10/16/21 09:07 Total Bilirubin 0.30 mg/dL (0.1-1.2) 10/16/21 09:07 AST 19 units/L (5-40) 10/16/21 09:07 ALT 17 units/L (7-56) 10/16/21 09:07 Alkaline Phosphatase 103 units/L (35-129) 10/16/21 09:07 Total Protein 6.7 g/dL (6.3-8.2) 10/16/21 09:07 Albumin 4.1 g/dL (3.9-5) 10/16/21 09:07 Albumin/Globulin Ratio 1.6 % 10/16/21 09:07 Triglycerides 64 mg/dL (2-149) 10/16/21 09:07 Cholesterol 171 mg/dL (50-199) 10/16/21 09:07 LDL Cholesterol Direct 91 mg/dL (50-130) 10/16/21 09:07 HDL Cholesterol 60 mg/dL (40-59) H 10/16/21 09:07 Cholesterol/HDL Ratio 2.85 % 10/16/21 09:07 TSH 1.530 mlU/mL (0.270-4.200) 10/16/21 09:07 Core Measure Documentation - Palliative Care Palliative Care/ Comfort Measures: Not Applicable - Core Measures Any of the following diagnoses?: none - VTE Discharge Requirements Deep Vein Thrombosis/Pulmonary Embolism Present on Admission: No Exam - Constitutional Vitals: Temp Pulse Resp BP Pulse Ox 98.7 F 90 17 138/76 99 10/22/21 07:40 10/22/21 08:26 10/22/21 08:26 10/22/21 07:40 10/22/21 07:40 Plan Activity: advance as tolerated Weight Bearing Status: Weight Bear as Tolerated Care Plan Goals: Maintain good and stable mental health. Plan of Treatment: The patient should be compliant with medications, not to use drugs and not to drink alcohol.The patient understands that if suicidal ideas, homicidal ideas, or any endangering thoughts/behavior arise, they should immediately seek for emergent assistance including but not limited to crisis hot line and emergency room. Follow up with outpatient Psychiatrist and PCP within 7 - 14 days of discharge. Follow up with: KSENIA KLEIN MD [Primary Care Provider] - 7 Days Prescriptions: hydrOXYzine HCL [Atarax] 50 mg PO BID 30 Days #60 tablet Pregabalin [Lyrica] 100 mg PO BID 60 Days #60 cap Topiramate [Topamax] 50 mg PO UNK 30 Days #30 Venlafaxine HCl [Venlafaxine HCl ER] 150 mg PO DAILY 30 Days #30 buPROPion XL [Wellbutrin XL] 150 mg PO QDAY 30 Days #30 tablet
[2021-10-22] MEDS: VENLAFAXINE XR 75 MG CAP PO SCH (09:22)
[2021-10-22] MEDS: PREGABALIN 50 MG CAP PO SCH (09:23)
[2021-10-22] MEDS: amLODIPine 5 MG TAB PO SCH (09:23)
[2021-10-22] MEDS: buPROPion XL 150 MG TAB PO SCH (09:23)
[2021-10-22] MEDS: hydrOXYzine HCL 25 MG TAB PO SCH (09:23)
[2021-10-22] MEDS: QUEtiapine 200 MG TAB PO SCH (09:23)
[2021-10-22] MEDS: ACETAMINOPHEN 325 MG TAB PO PRN (11:03)
== END 2021-10-22 11:30 | disposition home or self-care (01) | DRG 885 ==
LOC: UNDOADMIN 12:33 → 3A 12:33 → 5A 18:14
PROVIDERS: ADMIT Psychiatry & Neurology Psychiatry; ATTEND Psychiatry & Neurology Psychiatry
DX: F33.9 Major depressive disorder, recurrent, unspecified (principal); F01.51 Vascular dementia, unspecified severity, with behavioral disturbance; E44.0 Moderate protein-calorie malnutrition; G93.40 Encephalopathy, unspecified; R45.851 Suicidal ideations; I67.2 Cerebral atherosclerosis; I10 Essential (primary) hypertension; E11.9 Type 2 diabetes mellitus without complications; M19.90 Unspecified osteoarthritis, unspecified site; F41.1 Generalized anxiety disorder; E66.9 Obesity, unspecified; M79.7 Fibromyalgia; Z90.49 Acquired absence of other specified parts of digestive tract; Z88.2 Allergy status to sulfonamides; Z88.6 Allergy status to analgesic agent; Z83.3 Family history of diabetes mellitus; Z82.49 Family history of ischemic heart disease and other diseases of the circulatory system; Z68.32 Body mass index [BMI] 32.0-32.9, adult
CPT/HCPCS: 36415; 80053; 80061; 80307; 80320; 81001; 82962; 83036; 84443; 85025; 94640; 99284; G0378; Q0177; G0480; U0003